=== PATIENT | female | born 1950 | race Caucasian/White ===

== ENCOUNTER 2018-09-27 09:41 | Inpatient (IN) ==
--- NOTE | 2018-09-27 11:12 | EKG Report ---
Test Performed on : 09/27/2018 11:03:09 AM Test Reason : chest pain Blood Pressure : / mmHG Vent. Rate : 099 BPM Atrial Rate : 099 BPM P-R Int : 134 ms QRS Dur : 132 ms QT Int : 384 ms P-R-T Axes : 068 059 056 degrees QTc Int : 492 ms Normal sinus rhythm. Right bundle branch block Abnormal ECG When compared with ECG of 07-NOV-2016 06:24, Right bundle branch block is now present Confirmed by Darren CEVALLOS, Cristian Iverson ([id number]) on 09/28/2018 6:49:43 AM
[2018-09-27 12:09] LABS: ALLEN TEST NO; BLOOD TYPE ARTERIAL; HCO3-(ACT) 26.4 mmoll (20.0-26.0); METHB 0.7 % (0.0-1.5); MODALITY ROOM AIR; O2(CT) 19.4 mL/dL (15.0-23.0); PCO2(98.6) 40 mmHg (35-45); PO2(98.6) 79 mmHg (60-100); SAMPLE BLOOD; SAO2 96.6 % (95.0-100.0); THB 14.8 g/dL (11.5-17.4); pH(98.6) 7.43 (7.35-7.45)
[2018-09-27] MEDS: DILAUDID IV PRN ×3 (12:11→18:11)
[2018-09-27 13:42] LABS: BASO# 0.03 X1000 (0.0-0.2); BASO% 0.3 % (0.0-0.8); EOS# 0.24 X1000 (0.0-0.7); EOS% 2.3 % (0.0-10.0); HEMATOCRIT 43.7 % (37.0-47.0); HEMOGLOBIN 14.3 g/dL (12.0-16.0); IMM GRAN# 0.11 X1000 (0.0-0.04); IMM GRAN% 1.1 % (0.0-0.5); LYMPH# 1.51 X1000 (1.2-3.4); LYMPH% 14.5 % (20.5-51.1); MCH 28.5 PG (27-31); MCHC 32.7 g/dL (33-37); MCV 87.1 FL (81-99); MONO# 0.84 X1000 (0.11-0.59); MONO% 8.1 % (1.7-9.3); MPV 9.8 FL (7.4-10.4); NEUT# 7.65 X1000 (1.4-6.5); NEUT% 73.7 % (42.2-75.2); PLT 264 X1000 (130-400); RBC 5.02 XMIL (4.2-5.4); RDW 14.2 % (11.5-14.5); WBC 10.38 X1000 (4.8-10.8)
[2018-09-27 14:14] LABS: AGAP 10; ALB/GLOB RATIO 1.6; ALBUMIN 3.7 g/dL (3.5-5.0); ALKALINE PHOSPHATASE 96 U/L (32-104); BUN 17 mg/dL (8-22); CALCIUM 9.1 mg/dL (8.8-10.2); CHLORIDE 101 mmol/L (98-107); COSMO 279; CREATININE 0.6 mg/dL (0.5-0.9); ESTIMATED GFR > 60; GLUCOSE 96 mg/dL (70-104); GOT 21 U/L (10-30); GPT 14 U/L (10-36); POTASSIUM 3.6 mmol/L (3.5-5.1); SODIUM 139 mmol/L (136-145); TCO2 28 mmol/L (25-35); TOTAL BILIRUBIN 0.36 mg/dL (0.20-1.00)
[2018-09-27 14:57] LABS: INR 2.73; PROTIME 30.8 Seconds (11.0-16.0)
--- NOTE | 2018-09-27 15:12 | Diag Imaging Result Doc PS360 ---
EXAM: MRI LOW EXT JT W/WO CON-LEFT 09/27/2018 HISTORY: Left Hip pain TECHNIQUE: Axial proton density fat sat and axial oblique, T2 sagittal, coronal STIR, axial T1 fat sat post gadolinium and pregadolinium. COMMENT: There is a lesion in the posterior acetabulum demonstrate decreased T1 weighted signal intensity, increased proton density and STIR signal intensity and enhancement with gadolinium. There is an irregularly marginated collins of increased signal intensity on T2 and contrast enhancement around a more well-circumscribed central nidus demonstrating these signal characteristics to a lesser extent. There is a lesion in the greater trochanter demonstrating decreased contrast enhancement and T2 weighted signal intensity on the fat sat images probably representing fat. There is some associated soft tissue hyperintensity on the proton density T2 and post gadolinium-enhanced images around the bone lesion particularly posteriorly and there does appear to be some breakthrough of the cortex on both the medial and posterior aspects. This is highly suggestive of an aggressive metastatic lesion. There are no previous MRI studies. Compared to the previous CT of 06/29/2017 there is no evidence that the lesion was previously present. IMPRESSION: Metastatic lesion left ischium. Electronically signed by Owen Newby 09/27/2018 3:10 PM
--- NOTE | 2018-09-27 15:20 | Diag Imaging Result Doc PS360 ---
CT THORAX W/CONTRAST - 09/27/2018 INDICATION: pneumonia COMPARISON: Chest x-ray from 11/06/2016 FINDINGS: There is a rather large heterogeneously enhancing left hilar mass. This measures about 4.6 x 6.9 cm in AP and lateral dimensions. There is significant subcarinal, pretracheal, and AP window lymphadenopathy there is some faint infiltrate in the lingula adjacent to the left hilar mass. There is a granuloma in the left lower lobe. There is a tiny there are a few small scattered subcentimeter nodules throughout the right lung. There is mild to moderate COPD. Upper abdominal images are unremarkable. Bony structures are intact. No suspicious bony lesions. IMPRESSION: 1. Suspicious lymphadenopathy in the left hilum and mediastinum. Several tiny scattered pulmonary nodules. Concerning for metastatic cancer. Possibly representing lung cancer. 2. COPD. This exam was performed using automated exposure control, adjustment of mA or kV according to patient size, and/or use of iterative reconstruction technique Electronically signed by Lane Sen 09/27/2018 3:17 PM
[2018-09-27] MEDS: PATIENT'S OWN MED PO SCH (16:20)
[2018-09-27] MEDS: ZANAFLEX PO SCH (16:20)
[2018-09-27 20:14] LABS: URINE SOURCE CLEAN CATCH
[2018-09-27 20:22] LABS: BILIRUBIN URINE NEGATIVE (NEGATIVE); BLOOD URINE MODERATE (NEGATIVE); COLOR YELLOW; GLUCOSE URINE NEGATIVE (NEGATIVE); KETONE URINE NEGATIVE (NEGATIVE); LEUKOCYTES URINE TRACE (NEGATIVE); NITRITE URINE NEGATIVE (NEGATIVE); PH URINE 6.5; PROTEIN URINE TRACE mg/dL (NEGATIVE); SP GRAVITY URINE > 1.050; TURBIDITY URINE CLEAR (CLEAR); UR EPITHELIAL CELLS <10 /HPF (<10); URINE BACTERIA 4+ /HPF; URINE RBC <10 /HPF (<10); URINE WBC <10 /HPF (<10); UROBILINOGEN URINE NORMAL (NORMAL)
[2018-09-27] MEDS: COREG PO SCH (23:57)
--- NOTE | 2018-09-28 03:52 | HISTORY AND PHYSICAL ---
SUBJECTIVE: Left hip pain since 08/08/2018. HISTORY OF PRESENT ILLNESS: She is a 67-year-old white female, initially seen for left hip pain. X-rays were negative. She has history of PAD in both legs, with bypass graft on the left side. I did not hear until yesterday. Basically, came in with cough and left interscapular pain. Chest x- ray showed a left hilar mass. The patient refused to go to the hospital. The patient not able to ambulate. Basically, admitted to the hospital today at the request of the , for further diagnosis. CT chest showed centralized mass, close to the hilum. Unfortunately, MRI of the left hip showed metastatic disease in the left ischium. Consulted with Dr. Angela for a tissue diagnosis. As a result, a hospital admission was warranted for pain control. PAST MEDICAL HISTORY: CAD with a stent, COPD, hyperlipidemia, hypertension, hypothyroidism, nicotine dependency, peripheral vascular disease. PAST SURGICAL HISTORY: Tonsillectomy, appendectomy, hysterectomy, cystocele repair. Initial stent in the left leg in 2010, status post left femoral-tibial bypass in [facility], status post femoral- popliteal bypass in 09/[address] Nation. MEDICINES: Aspirin, amlodipine 5 mg daily, Lipitor 80 daily, Coreg 6.25 p.o. b.i.d., Norvasc 5 daily, Synthroid 50 mcg daily, Ventolin as needed. ALLERGIES: Not known. SOCIAL HISTORY: , 2 children. Retired from [employer]. Smoking 1 pack a day. Occasional alcohol use. FAMILY HISTORY: Father of alcohol abuse problem. Mom of cardiac arrest at the age of 27. Details are not known. HEALTH MAINTENANCE: Flu vaccine in 2018. Pneumococcal July 2017. Mammography November 2017. DEXA scan October 2016. REVIEW OF SYSTEMS: HEENT: No headache. No vision problem. No earache. No sore throat. Neck: No goiter. No lymphadenopathy. No bruit. Cardiopulmonary: Coughing. Interscapular pain. GI: No nausea, vomiting, abdominal pain. Left hip pain, intractable. Not able to ambulate. Claudication symptoms. No weakness. No back pain. Neurologic: No focal symptoms or weakness. PHYSICAL EXAMINATION: VITAL SIGNS: Temperature is 97 degrees, pulse is 76, blood pressure is 126/72, 5 feet 4. HEENT: Atraumatic, normocephalic. Pupils equal, react to light. TMs are normal. Nose and throat within normal limits. NECK: Supple. No lymphadenopathy. No goiter. CHEST: Bilateral air entry. Wheezing. HEART: Sounds are regular. ABDOMEN: Belly is soft, nontender. Good bowel sounds. EXTREMITIES: Pulses decreased in the right foot. NEUROLOGIC: No obvious neurological deficits noted. INVESTIGATIONS: CBC: White cell count 10, hematocrit 43, platelets 264,000. PT 13, INR 2.7. ABG: pH is 7.43, pCO2 40, PO2 79, on room air. SMA-7 is normal. LFTs were normal. CEA level 43. Urinalysis positive for blood. Chest x-ray: Left hilar mass. ASSESSMENT AND PLAN: 1. A 67-year-old white female admitted to the hospital with left hip pain, associated with a eft hilar mass, on Coumadin for peripheral arterial disease. Basically, suspicious for lung malignancy, metastatic, and elevated CEA. Need a tissue diagnosis. Dr. Angela consult for biopsy. 2. Pain control with Dilaudid. 3. Peripheral arterial disease, status post bypass graft in the left side. MILAN on the right is 0.5, occluded SFA and popliteal, with a poor downstream. Currently, asymptomatic. 4. Coronary artery disease, with a stent, on aspirin. 5. Hypothyroidism, on Synthroid. 6. Hyperlipidemia, on Lipitor. 7. Hypertension, on Coreg and Norvasc. 8. Tobacco abuse. Quit smoking. Patient has been abstained from smoking since 2017. 9. Health maintenance: Up-to-date on flu shot and pneumococcal vaccine. 10. Discussed with Dr. Angela and findings with the patient. Follow up. cc: David Natarajan MD
[2018-09-28] MEDS: DILAUDID IV PRN ×4 (07:08→20:26)
[2018-09-28] MEDS ORDERED: VITAMIN K IV ONE ×2 (08:50→10:00)
[2018-09-28] MEDS ORDERED: MOBIC PO SCH (09:00)
[2018-09-28] MEDS ORDERED: ASPIRIN EC PO SCH (09:00)
[2018-09-28] MEDS ORDERED: NS IV ONE (10:00)
[2018-09-28 10:12] LABS: PROTIME 24.2 Seconds (11.0-16.0)
[2018-09-28 10:13] LABS: PTT 37.6 Seconds (22.3-41.8)
[2018-09-28] MEDS: ZANAFLEX PO SCH ×3 (10:21→20:19)
[2018-09-28] MEDS: SYNTHROID PO SCH (10:21)
[2018-09-28] MEDS: APRESOLINE PO SCH (10:21)
[2018-09-28] MEDS: LIPITOR PO SCH (10:22)
[2018-09-28] MEDS: NORVASC PO SCH (10:22)
[2018-09-28] MEDS: COREG PO SCH ×2 (10:22→20:19)
[2018-09-28] MEDS: PATIENT'S OWN MED PO SCH ×3 (10:25→16:01)
--- NOTE | 2018-09-28 16:02 | Diag Imaging Result Doc PS360 ---
EXAM: MRI BRAIN W/WO CONTRAST INDICATION: CVA COMPARISON: None. FINDINGS: There is no evidence of acute infarct. There is focal encephalomalacia involving the right parietal lobe. There is patchy T2/FLAIR hyperintensity in the periventricular and subcortical white matter suggesting mild microangiopathy. There is no discrete intracranial mass, mass effect, or intracranial hemorrhage. There is no evidence of abnormal intracranial enhancement. In the diploic space of the right parietal bone, there is an enhancing nodule measuring 1.2 x 1.1 cm axially. It can be seen on image 262 of series 11. It is nonspecific. Given the patient's known lung mass, a solitary metastatic lesion to the skull cannot be excluded. Surrounding soft tissues and bony structures are essentially unremarkable, otherwise. IMPRESSION: 1.Enhancing nodule involving the right parietal bone that is nonspecific. Although questionable, a metastatic lesion to the skull cannot completely be excluded given the patient's history. 2.No evidence of intracranial metastatic disease. 3.Right parietal encephalomalacia and suggestion of mild white matter microangiopathy. No evidence of acute intracranial pathology. Electronically signed by Neel Hay 09/28/2018 3:59 PM
--- NOTE | 2018-09-28 17:14 | Diag Imaging Result Doc PS360 ---
EXAM: BONE SCAN, TOTAL BODY - 09/27/2018 HISTORY: mets TECHNIQUE: Radionuclide bone scan. Exam performed using 26.2 mCi technetium 99m MDP administered intravenously. Images are obtained of the skeleton anterior-posterior projections, an over the skull and lateral projections. COMPARISON: 09/28/2018 MRI brain FINDINGS: There is an oval area of increased activity at the left anterior superior skull. This appears to correspond with the lesion which is faintly visible on the MRI is suspicious for metastasis. There is mild increased activity at the more posterior superior skull which may represent a second metastasis. There is increased activity at the mid thoracic spine. There is increased activity at the left ischium, compatible with metastasis which was seen on the 09/27/2018 MRI left hip and pelvis. There is faint increased activity at the proximal to mid shaft of the right femur. There is increased activity at the medial right knee/proximal tibia. This location is more suggestive of degenerative disease than metastasis. There is mild increased activity of the cervical spine which may relate to degenerative disease. IMPRESSION: Apparent metastases at skull and left ischium. Possible metastasis at mid thoracic spine. Questionable metastasis at proximal to midshaft of right femur. Increased activity at right knee which may relate to degenerative disease. Mild increased activity of cervical spine which may relate to degenerative disease. Electronically signed by John Weston 09/28/2018 5:11 PM
--- NOTE | 2018-09-28 20:47 | PROGRESS NOTE ---
DATE: 09/28/2018 SUBJECTIVE: The patient's pain is much better on the left hip with hydromorphone. Appreciated Dr. Angela's consult. Workup is in progress. REVIEW OF SYSTEMS: Slight headache. PHYSICAL EXAMINATION: Vital Signs: Temperature is 97. Vitals are stable. HEENT: Within normal limits. Neck: Supple. Chest: Bilateral air entry. Cardiovascular: Heart sounds are regular. Abdomen: Belly is soft, nontender. Neurologic: No obvious neurological deficits. INVESTIGATIONS: CBC is normal. PT 24, INR 2.0. PO2 79. SMA-7 is normal. CEA level is high. ASSESSMENT AND PLAN: 1. Lung mass suspicious for metastatic disease, based on the MRI of the left hip, which has been going on since 08/08/2018. 2. Headaches. Will get MRI of the brain. 3. Bone scan for metastatic disease. 4. Waiting for tissue diagnosis. 5. Pain control with hydromorphone on the left hip, and based on the tissue, needs further evaluation, and also a consult with the oncologist. - LEVEL OF DOCUMENTATION: 35 minutes. cc: David Natarajan MD
--- NOTE | 2018-09-29 01:52 | CONSULTATION ---
DATE OF CONSULTATION: 09/28/2018 REQUESTING PROVIDER: Dr. David Natarajan. REASON FOR CONSULTATION: Lung mass. HISTORY OF PRESENT ILLNESS: This is a 67-year-old female with a medical history of coronary artery disease, COPD, hyperlipidemia, hypertension, hypothyroidism, tobacco abuse, and peripheral vascular disease. She was directly admitted Dr. Natarajan's office with a left hilar mass shown on chest x-ray. CT chest with contrast showed a rather large heterogenously enhancing left hilar lung mass, measuring about 4.6 x 6.9 cm in AP and lateral dimensions, with suspicious lymphadenopathy in the left hilum and mediastinum. Several tiny scattered pulmonary nodules concerning for metastatic cancer, possibly representing lung cancer. MRI of the left hip showed metastatic disease in the left ischium. At the time of my exam, she reports left hip pain. She states she feels like she has chest cold for a couple days. She denies hemoptysis, fever, chill, weight change, nausea, chest pain, or palpitation. PAST MEDICAL HISTORY: 1. Coronary artery disease, with 2 stents. 2. COPD. 3. Hyperlipidemia. 4. Hypertension. 5. Hypothyroidism. 6. Tobacco abuse, about 11-[id number] smoking history. 7. Peripheral vascular disease with two bypasses on LLE, on chronic Coumadin at home. PAST SURGICAL HISTORY: 1. Tonsillectomy. 2. Appendectomy. 3. Hysterectomy. 4. Cystocele repair. 5. Initial stent in the left leg in 2010. 6. Left femorotibial bypass. 7. Left femoropopliteal bypass. SOCIAL HISTORY: The patient smokes 1 pack per day for 50 years. She drinks occasionally. She has no history of illicit drug use. FAMILY HISTORY: Father had COPD. Mother of a cardiopulmonary arrest when she was sleeping at the age of 27. ALLERGIES: No known drug allergies. REVIEW OF SYSTEMS: A 10-point review of systems was conducted, and pertinent is listed in the HPI, otherwise noncontributory. PHYSICAL EXAMINATION: Vital Signs: Temperature 98.1, blood pressure 123/76, pulse 75, respiratory rate 16, oxygen saturation 93% in room air. General: This is a very pleasant female. She is sitting on the bed, with no acute distress noted. The patient's is at the bedside, and is very supportive. HEENT: Atraumatic. Trachea midline. Mucosa pink and moist. Respiratory: Lung expansion equal bilaterally. Clear to auscultation. Cardiovascular: Regular rate and rhythm, without murmur noted. Gastrointestinal: Bowel sounds normoactive in all 4 quadrants. Soft, nontender, and nondistended. Extremities : No pedal edema. No cyanosis. No clubbing. Neurologic: Alert and oriented x3. Speech fluent. Follows commands. ASSESSMENT: This is a 67-year-old female, admitted directly from Dr. Natarajan's office, for a left hilar mass on her chest x-ray. She has a medical history of coronary artery disease, chronic obstructive pulmonary disease, hyperlipidemia, hypertension, hypothyroidism, tobacco abuse, and peripheral vascular disease. 1. lung mass with suspicious lymphadenopathy and several tiny scattered pulmonary nodules, suspicious for metastatic disease. 2. Chronic obstructive pulmonary disease. 3. Ongoing tobacco abuse PLAN: 1. Continue holding Coumadin and continue vitamin K; FU with coagulation panels. 2. Bronchoscopy with biopsy planned on next Monday 3. Dr. Angela discussed our plan with the patient and her in detail. All questions answered. 4. Daily education on the need to quit smoking and the means of smoking cessation. 5. Continue GI and DVT prophylaxis. Thank you for the courtesy of this consult. Dictated by FABRIZIO Pacheco for Jaspreet Angela MD cc: FABRIZIO Pacheco MD Jagan Reddy, MD [facility]
[2018-09-29] MEDS: DILAUDID IV PRN ×4 (02:40→20:30)
[2018-09-29] MEDS ORDERED: VITAMIN K 5 MG in NS 50 ML IV ONE (07:13)
[2018-09-29 08:33] LABS: PTT 27.9 Seconds (22.3-41.8)
[2018-09-29 08:50] LABS: INR 1.06; PROTIME 14.7 Seconds (11.0-16.0)
[2018-09-29] MEDS: PATIENT'S OWN MED PO SCH ×3 (09:03→16:17)
[2018-09-29] MEDS: SYNTHROID PO SCH (09:03)
[2018-09-29] MEDS: ZANAFLEX PO SCH ×3 (09:03→16:17)
[2018-09-29] MEDS: COREG PO SCH ×2 (09:03→20:29)
[2018-09-29] MEDS: LIPITOR PO SCH (09:03)
[2018-09-29] MEDS: NORVASC PO SCH (09:03)
[2018-09-29] MEDS: APRESOLINE PO SCH (09:03)
[2018-09-29] MEDS: LEVAQUIN 500 MG/D5W 500 MG/100 ML IVPB IV SCH (09:08)
[2018-09-29] MEDS: ATIVAN IV PRN ×2 (13:04→22:59)
--- NOTE | 2018-09-29 13:53 | PROGRESS NOTE ---
DATE: 09/29/2018 SUBJECTIVE: The patient has a little better pain, but urine cultures were with some infection. Patient is distraught about the findings on MRI and bone scan. Waiting for tissue diagnosis. OBJECTIVE: Vital Signs: Temperature is 98 degrees. Vitals are stable. HEENT: Exam is within normal limits. Neck: Supple. Chest: Clear. Heart: Sounds are regular. No deficits noted. MRI findings discussed, as well as bone scan. PT was 14, INR 1.06, CEA level 3.4. Urine culture showed E coli. ASSESSMENT AND PLAN: 1. Urinary tract infection. Intravenous Levaquin 500 daily. 2. Anxiety/depression due to recent diagnosis. Ativan 0.5 mg every 6 hours. 3. Left hip pain on intravenous Dilaudid. 4. Peripheral artery disease in both legs, stable off Coumadin. The patient was given vitamin K. INR is within normal limits. Waiting for bronchoscopy on Monday for tissue diagnosis. We will also initiate Oncology consultation prior to the discharge. LEVEL OF DOCUMENTATION: 25 minutes. cc: David Natarajan MD
[2018-09-29] MEDS: SOLU-MEDROL IV SCH ×2 (15:16→20:29)
[2018-09-30] MEDS: SOLU-MEDROL IV SCH ×4 (00:48→20:49)
[2018-09-30] MEDS: DILAUDID IV PRN ×4 (02:05→23:57)
[2018-09-30] MEDS: ATIVAN IV PRN ×2 (04:59→17:03)
[2018-09-30] MEDS: APRESOLINE PO SCH (08:08)
[2018-09-30] MEDS: COREG PO SCH ×2 (08:08→20:49)
[2018-09-30] MEDS: ZANAFLEX PO SCH ×3 (08:08→16:59)
[2018-09-30] MEDS: SYNTHROID PO SCH (08:08)
[2018-09-30] MEDS: LEVAQUIN 500 MG/D5W 500 MG/100 ML IVPB IV SCH (08:08)
[2018-09-30] MEDS: LIPITOR PO SCH (08:08)
[2018-09-30] MEDS: PATIENT'S OWN MED PO SCH ×3 (08:09→16:19)
[2018-09-30] MEDS: NORVASC PO SCH (08:10)
[2018-09-30 10:08] LABS: INR 0.89; PROTIME 12.8 Seconds (11.0-16.0)
[2018-09-30 10:09] LABS: PTT 24.1 Seconds (22.3-41.8)
--- NOTE | 2018-09-30 16:09 | PROGRESS NOTE ---
DATE: 09/30/2018 SUBJECTIVE: Family was bedside. Findings were alarming, suspicious for malignancy, but tissue diagnosis is important. Do not disclose the diagnosis until the tissue diagnosis. INR is normal. Waiting for bronchoscopy in the morning. Pain is adequately better. EXAMINATION: Vital signs: Temperature is 97 degrees, pulse is 89, blood pressure 123/73. HEENT: Exam within normal limits. Neck: Supple. Chest: Bilateral air entry. Heart : Sounds are regular. Abdomen: Belly is soft, nontender. INVESTIGATIONS: PT 12, INR 0.8. ASSESSMENT AND PLAN: 1. Lung malignancy with metastatic disease and tissue diagnosis tomorrow. 2. Also we will involve the oncologist . 3. Urinary tract infection. On IV antibiotics. 4. Pain control, left hip pain, with IV Dilaudid. 5. Anxiety. Now Ativan as needed 6. Also started on IV steroids for the pain control. 7. Peripheral artery disease (PAD) both legs. Stable. We will follow up. LEVEL OF DOCUMENTATION: 25 minutes. cc: David Natarajan MD MTDD
[2018-10-01] MEDS: SOLU-MEDROL IV SCH ×3 (00:42→15:14)
[2018-10-01] MEDS: DILAUDID IV PRN ×4 (03:42→21:49)
[2018-10-01 07:38] LABS: BASO# 0.01 X1000 (0.0-0.2); BASO% 0.1 % (0.0-0.8); HEMOGLOBIN 14.3 g/dL (12.0-16.0); IMM GRAN% 0.5 % (0.0-0.5); LYMPH# 0.86 X1000 (1.2-3.4); LYMPH% 4.5 % (20.5-51.1); MCH 28.3 PG (27-31); MCHC 33.3 g/dL (33-37); MONO# 0.42 X1000 (0.11-0.59); MONO% 2.2 % (1.7-9.3); MPV 10.3 FL (7.4-10.4); NEUT# 17.85 X1000 (1.4-6.5); NEUT% 92.7 % (42.2-75.2); PLT 300 X1000 (130-400); RBC 5.06 XMIL (4.2-5.4); RDW 13.6 % (11.5-14.5); WBC 19.24 X1000 (4.8-10.8)
[2018-10-01 07:53] LABS: LYMPHS 2 % (21-51); MONO 2 % (1-9); SEGS 96 % (42-75)
[2018-10-01] MEDS: APRESOLINE PO SCH (08:19)
[2018-10-01] MEDS: COREG PO SCH ×2 (08:20→21:07)
[2018-10-01] MEDS: ZANAFLEX PO SCH ×5 (08:20→17:31)
[2018-10-01] MEDS: PATIENT'S OWN MED PO SCH ×3 (08:21→17:30)
[2018-10-01] MEDS: LEVAQUIN 500 MG/D5W 500 MG/100 ML IVPB IV SCH (08:27)
[2018-10-01] MEDS ORDERED: ALBUTEROL NEB INH PRN (08:46)
[2018-10-01] MEDS: LIPITOR PO SCH (09:16)
[2018-10-01] MEDS: SYNTHROID PO SCH (09:19)
[2018-10-01] MEDS: NORVASC PO SCH (09:19)
[2018-10-01] MEDS: ATIVAN IV PRN (09:21)
[2018-10-01] MEDS ORDERED: EPINEPHRINE ONE (12:28)
[2018-10-01] MEDS ORDERED: XYLOCAINE 2% ONE ×2 (12:28→13:00)
[2018-10-01] MEDS ORDERED: SODIUM CHLORIDE 0.9% 20 ML ONE (12:28)
[2018-10-01] MEDS ORDERED: XYLOCAINE 2% VISCOUS ONE (12:28)
[2018-10-01] MEDS ORDERED: XYLOCAINE-MPF 2% ONE (12:36)
[2018-10-01] MEDS ORDERED: DIPRIVAN 1% ONE (12:36)
[2018-10-01] MEDS ORDERED: VERSED ONE (12:52)
--- NOTE | 2018-10-01 14:24 | OPERATIVE NOTE ---
PROCEDURE DATE: REFERRING PHYSICIAN: Dr. Natarajan. PROCEDURE: Bronchoscopy. INDICATIONS: Left lung mass. DESCRIPTION OF PROCEDURE: Consent obtained. Conscious sedation administered by Anesthesia Department. Local anesthesia with lidocaine jelly and spray. Flexible scope passed through left nostril, normal vocal cord movements. All major segments visualized, and we seen a blocking tumor in the left upper lobe lingular segment. Fluoroscopy scanning was used for sampling. We did some washings and brushings, and eventually endobronchial x3 and transbronchial times 3 biopsies to prevent significant bleeding. We did dilute epinephrine spray to the area. Total blood loss was less than 10 mL, and by the time we finished and we pulled the scope. There was no active bleeding. Fluoroscopy scanning pulse showed no pneumothorax, however an official chest x-ray is requested IMPRESSION: 1. Lung mass. 2. Left upper lobe blocking tumor to the lingular segment, and protruding into the left upper lobe major segments. The block is about 100%. PLAN: Awaiting pathology and pathology reports. cc: MD David Martin MD
--- NOTE | 2018-10-01 14:25 | Diag Imaging Result Doc PS360 ---
CHEST-PORTABLE - 10/01/2018 INDICATION: POST BRONCH COMPARISON: 11/06/2016 FINDINGS: There is a large rounded opacity in the left perihilar lung. This measures 5.3 cm. There is some faint infiltrate in the left lung base as well. No pneumothorax or significant pleural effusion. Heart size is top normal. IMPRESSION: No pneumothorax or pleural effusion. Electronically signed by aLne Sen 10/01/2018 2:22 PM
--- NOTE | 2018-10-01 19:20 | PROGRESS NOTE ---
DATE: 10/01/2018 SUBJECT: The patient is anxious to go home and appreciated Dr. Angela consult and waiting for bronchoscopy. EXAM: Vital signs: Temperature 97 degrees, pulse is 57, blood pressure is 173/50. HEENT: Within normal limits. Neck: Supple. Chest: Clear. Heart: Sounds are regular. Belly: Is soft, nontender. LABS: White cell count 19, hematocrit 43, platelets 300,000. INR is 0.89. ASSESSMENT AND PLAN: 1. Metastatic suspicious lung cancer. Waiting for tissue diagnosis, also oncology consult Dr. Feldman, waiting for bronchoscopy. 2. Urinary tract infection on intravenous antibiotics and will restart of the Coumadin tomorrow and decrease IV steroids and will discuss with Dr. Feldman. LEVEL OF DOCUMENTATION: 25 minutes. cc: David Natarajan MD
[2018-10-02] MEDS: DILAUDID IV PRN ×2 (06:45→09:36)
[2018-10-02] MEDS ORDERED: SOLU-MEDROL IV SCH (09:00)
[2018-10-02] MEDS: LEVAQUIN 500 MG/D5W 500 MG/100 ML IVPB IV SCH (09:22)
[2018-10-02] MEDS: NORVASC PO SCH (09:23)
[2018-10-02] MEDS: LIPITOR PO SCH (09:23)
[2018-10-02] MEDS: SYNTHROID PO SCH (09:23)
[2018-10-02] MEDS: COREG PO SCH (09:23)
[2018-10-02] MEDS: ZANAFLEX PO SCH ×3 (09:23→17:55)
[2018-10-02] MEDS: APRESOLINE PO SCH (09:23)
[2018-10-02] MEDS: PATIENT'S OWN MED PO SCH ×3 (09:24→16:39)
--- NOTE | 2018-10-02 12:03 | Diag Imaging Result Doc PS360 ---
CT ABD/PELVIS W/PO AND IV CON - 10/02/2018 INDICATION: R/O mets COMPARISON: None FINDINGS: The lung bases are clear and the heart size is normal. The liver, gallbladder, spleen, pancreas, adrenals, and kidneys are normal. There is a small benign left renal cyst. No bowel obstruction or inflammation. There are large erosive bony metastases in the pelvis. There is one in the anterior left iliac wing that measures 3 cm in diameter. This completely erodes the bone through and through. There is also a large metastasis at the posterior medial wall of the left acetabulum. Again this erodes through and through. This also measures about 3 cm. IMPRESSION: Large erosive bony metastases in the left side of the pelvis. This exam was performed using automated exposure control, adjustment of mA or kV according to patient size, and/or use of iterative reconstruction technique Electronically signed by Lane Sen 10/02/2018 12:00 PM
[2018-10-02 13:57] VITALS: BP 107/59
[2018-10-02] MEDS: NORCO-5 PO PRN ×2 (14:41→19:40)
--- NOTE | 2018-10-02 17:43 | HEMO/ONC CONSULTATION ---
DATE: 10/01/2018 ADMITTING PHYSICIAN: Dr. Natarajan. REQUESTING PHYSICIAN: Dr. Natarajan. CHIEF COMPLAINT: Probable lung cancer. HISTORY OF PRESENT ILLNESS: Ms. Isabella Sheets is a pleasant, 67-year-old female with a medical history of coronary artery disease, COPD, hyperlipidemia, hypertension, hypothyroidism, nicotine dependency, peripheral vascular disease, who was initially seen for left hip pain. X-rays at that time were negative. The patient presented to [facility] secondary to significant cough and left interscapular pain. Chest x-ray showed a left hilar mass. The patient was admitted to the hospital where CT of the chest showed a centralized mass close to the hilum. Additionally, MRI of the left hip showed metastatic disease to the left ischium. Dr. Angela has been consulted for bronchoscopy with tissue diagnosis. We are consulted for workup and treatment plan. PAST SURGERY HISTORY: As in HPI. PAST SURGICAL HISTORY: 1. Tonsillectomy. 2. Appendectomy. 3. Hysterectomy. 4. Cystocele repair. 5. Stent placement in left leg. 6. Left femoral/tibial bypass, femoral/popliteal bypass. MEDICATIONS ON ADMISSION: 1. Aspirin. 2. Amlodipine. 3. Lipitor. 4. Coreg. 5. Norvasc. 6. Synthroid. 7. Ventolin. ALLERGIES: The patient has no known drug allergies. SOCIAL HISTORY: The patient smokes 1 pack cigarettes daily. She does not use alcohol or illicit drugs. FAMILY HISTORY: Negative for any hematologic or oncologic problem. REVIEW OF SYSTEMS: A 14 point review of systems was obtained and is negative except for mentioned in HPI. PHYSICAL EXAMINATION: General: Ms. Sheets is a 67-year-old female, lying supine in bed, in no immediate distress. Vital Signs: Temperature 98.1, blood pressure 124/76, heart rate 74, respirations 14, O2 saturation is 96% on room air. HEENT: Normocephalic, atraumatic. Mucous membranes are pink and moist. Sclerae anicteric. Extraocular movements intact. Neck: Supple. Lungs: Coarse breath sounds throughout. CV: S1, S2 is heard. No murmurs, rubs, or gallops. Abdomen: Soft, nontender, nondistended. Bowel sounds positive in all quadrants. No rebound or guarding noted. Extremities: No clubbing, cyanosis, or edema. Dermatologic: No rashes, bruises, or lesions. Neurologic: The patient is awake, alert, and oriented x3. She has no focal deficits. LABORATORY DATA: Hemoglobin 14.3, hematocrit 43.0, white blood cell count is 19.24, platelets 300,000. INR is 0.89. IMAGING STUDIES: MRI of the brain reveals right parietal bone nodule with no intracranial metastases, as well as right parietal encephalomalacia; no acute findings. CT chest reveals suspicious lymphadenopathy in the left hilum and mediastinum with tiny scattered lung nodules questionably related to lung cancer, as well as COPD. Bone scan reveals skull and left ischium metastases with mid-thoracic spine and right femur metastases. ASSESSMENT AND PLAN: 1. Probable lung cancer. Dr. Angela has been consulted at this time for tissue diagnosis with bronchoscopy. We will check a CT of the abdomen and pelvis as well to rule out any further metastases. Treatment plan will follow. 2. Peripheral arterial disease. On Coumadin, which is being held. The patient is status post left graft. 3. Coronary artery disease. On aspirin status post stent. 4. Hypothyroidism. On thyroid replacement. 5. Hypertension. On Coreg and Norvasc. 6. Hyperlipidemia. The patient is being maintained on Lipitor. We will follow along with you and make further recommendations pending outcomes. The above reflects the history, exam, assessment, and plan of Dr. Howard. Dictated by FABRIZIO Mora for Torey Howard MD cc: FABRIZIO Mora MD Jagan Reddy, MD
--- NOTE | 2018-10-04 22:52 | DISCHARGE SUMMARY ---
ADMISSION DATE: 09/27/2018 DISCHARGE DATE: 10/02/2018 DISCHARGING DIAGNOSIS: Intractable left hip pain due to metastatic nonsmall cell lung cancer, as per Dr. Fernando. Final report is pending. SECONDARY DIAGNOSES: 1. Coronary artery disease with a stent. 2. Chronic obstructive pulmonary disease. 3. Hyperlipidemia. 4. Hypertension. 5. Hypothyroidism. 6. Nicotine dependency. 7. Peripheral vascular disease both legs status post bypass graft in the left leg, and also moderate peripheral arterial disease in the right leg with a distal superficial femoral artery occlusion with poor runoff downstream. 8. Metastatic disease in the brain, right parietal area. CONSULTS: 1. Dr. Angela. 2. Dr. Howard. PROCEDURES: Bronchoscopy with bronchial tumor on the left lung, nonsmall cell lung cancer. Further studies are pending. BRIEF HISTORY AND HOSPITAL COURSE: Please see the H and P that was done on 09/17/2018. In brief, she is a 67-year-old, white female who was admitted to the hospital with intractable left hip pain since 08/08/2019. Patient was followed 6 weeks later in my office. Subsequent workup, chest x- ray showed left lung mass. Findings are suspicious for metastatic disease. Admitted to the hospital for tissue diagnosis and pain control. The patient was given IV Dilaudid for pain control. Further workup revealed metastatic lung disease with nonsmall cell lung cancer. Bronchoscopy findings are left lung tumor consistent with nonsmall cell lung cancer. Further workup revealed metastases to the brain and bones. PET scan was pending, Dr. Howard was consulted. The patient is anxious to go home. She is going to follow up with Dr. Howard for pain control, staging, and further treatment. Urinary tract infection with E coli. Patient also had E coli in the urine for which she was given IV antibiotics. At the time of discharge, patient completely asymptomatic. LABS: CBC: White cell count 10, hematocrit 43, platelets 264,000. PT 12, INR 0.89. ABG: pH is 7.43, pCO2 of 40, PO2 of 79. SMA-7: Sodium 139, potassium 3.6, BUN 17, creatinine 0.6. Glucose 96. LFTs were normal. CEA level 43.4. Urine cultures were negative. The patient was on Coumadin for PAD disease, that was stopped prior to the bronchoscopy, and also given vitamin K. RADIOLOGY PROCEDURES: 1. CT scan of the abdomen and pelvis: Large erosive bony metastasis in the left side of the pelvis. 2. Chest x-ray showed 5 cm mass in the left perihilar lung. 3. MRI of the brain, enhancing nodule in the right parietal bone suspicious for metastatic disease. 4. Bone scan: Apparently, metastasis skull, left ischium and possible in mid thoracic spine. 5. MRI of the left hip: Metastatic lesion in the left is clean. 6. Chest CT: Suspicious lymphadenopathy in the left hilum and mediastinum, and COPD. The patient appears to be disordered and was given some Ativan. DISCHARGE INSTRUCTIONS: 1. Aspirin 81 mg daily, amlodipine 5 mg daily, Lipitor 80 mg daily, Coreg 6.25 b.i.d. hydralazine 25 daily, Synthroid 50 mcg daily, Mobic 15 daily, tizanidine 4 mg t.i.d., warfarin 5 and 10 alternate, and maintain the Coumadin levels did INR between 2 and 3; [place] 5 q.6 hours p.r.n. pain. 2. She is going to follow up with Dr. Howard for maintenance care. 3. Follow up in my office. cc: David Natarajan MD
== END 2018-10-02 19:47 | disposition home or self-care (01) | DRG 829 ==
LOC: DIRADM 09:41 → 3N 10:25
PROVIDERS: ADMIT Internal Medicine; ATTEND Internal Medicine
CPT/HCPCS: 70553; 71010; 71045; 71260; 73723; 74177; 76000; 78306; 80053; 81001; 82378; 82805; 85025; 85610; 85730; 87015; 87070; 87077; 87088; 87102; 87116; 87147; 87186; 87205; 87206; 88112; 88305; 88341; 88342; 88343; 93005; 93010; A9270; A9503; A9579; G0461; G0462; J0171; J1170; J1956; J2060; J2250; J2920; J3430; Q9967

== ENCOUNTER 2019-02-01 10:34 | Inpatient (IN) ==
[2019-02-01] MEDS ORDERED: DURAGESIC 100 MICROGM/HR PATCH TD ONE (10:55)
[2019-02-01] MEDS ORDERED: KETAMINE IV ONE (10:55)
[2019-02-01] MEDS ORDERED: FENTANYL IV ONE (10:55)
[2019-02-01] MEDS ORDERED: NS 1,000 ML IV ONE (10:57)
--- NOTE | 2019-02-01 11:16 | Diag Imaging Result Doc PS360 ---
CHEST-PORTABLE - 02/01/2019 INDICATION: cp COMPARISON: 10/24/2018 FINDINGS: There is now complete opacification of the left lung. There is probably some volume loss indicating substantial collapse. Stable right chest port in good position. The right lung is clear. IMPRESSION: Complete collapse of the left lung. Electronically signed by Lane Sen 02/01/2019 11:14 AM
[2019-02-01 11:44] LABS: BASO# 0.02 X1000 (0.0-0.2); BASO% 0.2 % (0.0-0.8); HEMATOCRIT 32.7 % (37.0-47.0); HEMOGLOBIN 10.9 g/dL (12.0-16.0); IMM GRAN# 0.06 X1000 (0.0-0.04); IMM GRAN% 0.6 % (0.0-0.5); LYMPH% 3.7 % (20.5-51.1); MCH 29.1 PG (27-31); MCHC 33.3 g/dL (33-37); MCV 87.4 FL (81-99); MONO# 0.67 X1000 (0.11-0.59); MONO% 6.3 % (1.7-9.3); MPV 9.8 FL (7.4-10.4); NEUT# 9.55 X1000 (1.4-6.5); NEUT% 89.2 % (42.2-75.2); PLT 302 X1000 (130-400); RBC 3.74 XMIL (4.2-5.4); RDW 18.6 % (11.5-14.5)
[2019-02-01] MEDS ORDERED: CARDIZEM IV ONE ×2 (11:47→12:21)
[2019-02-01 11:56] LABS: INR 2.78; PROTIME 31.3 Seconds (11.0-16.0)
[2019-02-01 12:10] LABS: AGAP 19; ALB/GLOB RATIO 1.2; ALBUMIN 3.1 g/dL (3.5-5.0); ALKALINE PHOSPHATASE 142 U/L (32-104); BUN 10 mg/dL (8-22); C REACTIVE PROT QUANT 122.39 mg/L (0.00-5.00); CALCIUM 6.8 mg/dL (8.8-10.2); CHLORIDE 91 mmol/L (98-107); COSMO 259; CREATININE 0.5 mg/dL (0.5-0.9); ESTIMATED GFR > 60; GLUCOSE 88 mg/dL (70-104); GOT 26 U/L (10-30); GPT 7 U/L (10-36); POTASSIUM 3.8 mmol/L (3.5-5.1); SODIUM 130 mmol/L (136-145); TCO2 20 mmol/L (25-35); TOTAL PROTEIN 5.7 g/dL (6.3-8.3)
--- NOTE | 2019-02-01 12:13 | EKG Report ---
Test Performed on : 02/01/2019 11:37:19 AM Test Reason : cp Blood Pressure : / mmHG Vent. Rate : 187 BPM Atrial Rate : 182 BPM P-R Int : 000 ms QRS Dur : 122 ms QT Int : 248 ms P-R-T Axes : 000 091 -32 degrees QTc Int : 437 ms Atrial fibrillation. with rapid ventricular response. Right bundle branch block T wave abnormality, consider lateral ischemia Abnormal ECG When compared with ECG of 27-SEP-2018 11:03, Atrial fibrillation. has replaced Sinus rhythm. Vent. rate has increased BY [address] now depressed in Lateral leads T wave inversion now evident in Inferior leads Unconfirmed Result
[2019-02-01] MEDS ORDERED: MAGNESIUM SULFATE 2 GM/S.W.I. 2 GM/50 ML IVPB IV ONE (12:16)
[2019-02-01] MEDS ORDERED: CALCIUM CHLORIDE SYRINGE IV ONE (12:16)
[2019-02-01] MEDS ORDERED: LASIX IV ONE (12:21)
[2019-02-01] MEDS ORDERED: VANCOMYCIN 1 GM/NS 1 GM/250 ML IVPB IV ONE (12:23)
[2019-02-01] MEDS ORDERED: ZOSYN 4.5 GM in NS 100 ML IV ONE (12:23)
--- NOTE | 2019-02-01 12:38 | PROVIDER DOCUMENTATION ---
This chart was entered by Tammi Castillo Scribe, acting as scribe for Manpreet May MD. HPI-General Adult - General Chief Complaint: Back Pain Stated Complaint: low back pain Time Seen by Provider: 02/01/19 10:38 Source: patient, family () Allergies/Adverse Reactions: Patient Allergies Allergy/AdvReac Type Severity Reaction Status Date / Time No Known Allergies Allergy Verified 02/01/19 11:51 Home Medications: Home Medication List Medication Instructions Recorded Confirmed Last Taken Type Amlodipine [Norvasc] 5 mg PO DAILY 09/27/18 10/24/18 10/22/18 History Atorvastatin Calcium 80 mg PO DAILY 09/27/18 10/24/18 10/23/18 10:00 History Levothyroxine [Synthroid] 50 microgm PO DAILY 09/27/18 10/24/18 10/23/18 History Meloxicam 15 mg PO DAILY 09/27/18 10/24/18 10/23/18 10:00 History Tizanidine HCl 4 mg PO TID 09/27/18 10/24/18 10/23/18 History Warfarin [Coumadin] 10 mg PO QHS 09/27/18 10/24/18 10/19/18 History Allopurinol 300 mg PO DAILY 10/23/18 10/24/18 10/23/18 10:00 History Carvedilol 6.25 mg PO BID 10/23/18 10/24/18 10/23/18 10:00 History Cetirizine HCl [Zyrtec] 10 mg PO DAILY 10/23/18 10/24/18 10/23/18 10:00 History Docusate Sodium [Colace] 100 mg PO DAILY 10/23/18 10/24/18 10/23/18 10:00 History Enoxaparin [Lovenox] 80 mg SUBQ Q12H 10/23/18 10/24/18 10/23/18 History Fentanyl 25 Microgm/Hr Patch 1 ea TD Q72H 10/23/18 10/24/18 10/21/18 History [Duragesic 25 Microgm/Hr Patch] Hydroxyzine [Atarax] 25 mg PO DAILY 10/23/18 10/24/18 10/23/18 History Ondansetron [Zofran] 4 mg PO Q6H PRN PRN 10/23/18 10/24/18 10/23/18 History Hydromorphone [Dilaudid] 2 mg PO Q3H PRN PRN 10/24/18 10/24/18 10/24/18 09:49 History - History of Present Illness -Gen Adult Nature of Presenting Problems: Patient is a 68 year old female who presents with generalized pain that started at 0200 this morning. Patient's states patient has bone, lung and liver cancer that is being monitored by Dr. Howard. Patient states she is on a Morphine pump of 12 mg an hour. states pump was adjusted yesterday around 1500 from 10 mg to 12 mg. states patient recently finished chemo and is suppose to start radiation today at 2:30 pm. Patient denies fever, chills and shortness of breath. RN states patient had 4 mg PO of Dilaudid prior to arrival. Location of Pain/Injury: reports: generalized Pain Radiation: reports: no radiation Quality of Pain: reports: aching Severity: reports: moderate Onset/Duration: reports: this morning (0200) Timing: reports: still present, getting worse Associated Symptoms: reports: denies symptoms Similar Symptoms Previously?: No Recently seen or treated by another doctor?: Yes Review of Systems - Adult - REVIEW OF SYSTEMS - ADULT Constitutional: reports: no symptoms reported. denies: chills, fever, fatique Eyes: reports: no symptoms reported Ears, Nose, Mouth & Throat: reports: no symptoms reported Cardiovascular: reports: no symptoms reported Respiratory: reports: cough. denies: shortness of breath, wheezing Gastrointestinal: reports: no symptoms reported Genitourinary: reports: no symptoms reported Musculoskeletal: reports: see HPI, other (generalized pain). denies: joint swelling, muscle weakness Integumentary: reports: no symptoms reported Neurological: reports: no symptoms reported Psychiatric: reports: no symptoms reported Endocrine: reports: no symptoms reported Hematologic/Lymphatic: reports: no symptoms reported Allergic/Immunologic: reports: no symptoms reported All Other Systems: Reviewed and Negative Past History - Adult - PAST MEDICAL HISTORY-ADULT Review of Records: reports: Old Records Reviewed, Nursing Assessment Review, Medications Reviewed, Social history reviewed & non-contributory. Major Childhood Illnesses: reports: denies history Cardiovascular: reports: HTN, VT, other (Femoral artery bypass) Respiratory: reports: cancer Gastrointestinal: reports: denies history Obstetrical/Gynecological: reports: denies history Genitourinary: reports: denies history Musculoskeletal: reports: denies history Neurological: reports: denies history Psychiatric: reports: denies history Endocrine/Immune: reports: thyroid disorder Other Conditions: reports: denies history - PRIOR SURGERIES/PROCEDURES Surgical/Procedure History: reports: appendectomy, hysterectomy, tonsillectomy - IMMUNIZATION STATUS Childhood Immunizations: See Nurse Assessment Flu Vaccine: See Nurse Assessment - FAMILY HISTORY Family History: reviewed, not pertinent - SOCIAL HISTORY Smoking: cigarettes (former) Substance Use: denies Living Situation: family Physical Exam-General - PHYSICAL EXAM-ADULT Initial Vital Signs Reviewed: Yes - CONSTITUTIONAL General Appearance: alert, moderate distress. negative: lethargic, slow to respond - RESPIRATORY Respiratory: chest non-tender, lungs clear, normal breath sounds, other (port to right upper chest). negative: crackles, rhonchi, stridor - CARDIOVASCULAR Cardiovascular: normal peripheral pulses, tachycardia, extra beats. negative: systolic murmur - GASTROINTESTINAL (ABDOMEN) Abdominal Exam: normal bowel sounds, non tender, soft. negative: guarding, rebound - MUSCULOSKELETAL Extremity: other (4 + pitting edema to bilateral lower extremities.). negative: deformity, joint effusion - SKIN Integumentary: normal color, normal turgor, warm/dry. negative: cyanosis, ecchymosis, erythema, jaundice - NEUROLOGIC Neurologic: grossly normal. negative: aphasia, facial droop - PSYCHIATRIC Psych/Mental Status: normal mood/affect, oriented x 3. negative: anxious Progress - PLAN OF CARE/RESULTS Progress/Plan/Lab Results: Vital Signs - 8 hr 02/01/19 10:36 Temperature 98.1 F Pulse Rate 108 H Respiratory Rate 26 H Blood Pressure 121/71 O2 Sat by Pulse Oximetry 94 L Orders Category Date Time Status Access [OK to use Port-A-Cath] ORDERED Care 02/01/19 10:57 Active Nursing- Obtain EKG once Care 02/01/19 10:54 Active CHEST-PORTABLE [RAD] Stat Exams 02/01/19 10:55 Ordered BLOOD CULTURE [BLDCUL] Stat Lab 02/01/19 10:54 Uncollected C REACTIVE PROT QUANT [CHEM] Stat Lab 02/01/19 10:54 Uncollected CBC WITH ELECTRONIC DIFF [HEME] Stat Lab 02/01/19 10:54 Uncollected COMPREHENSIVE METABOLIC PANEL [CHEM] Stat Lab 02/01/19 10:54 Uncollected LACTATE, PLASMA [CHEM] Stat Lab 02/01/19 10:54 Uncollected MAGNESIUM [CHEM] Stat Lab 02/01/19 10:54 Uncollected PRO B-NATRIURETIC PEPTIDE Stat Lab 02/01/19 10:55 Uncollected PROTIME WITH INR [COAG] Stat Lab 02/01/19 10:55 Uncollected TROPONIN T Stat Lab 02/01/19 10:55 Uncollected URINALYSIS W/POSS RFLX CULT [URINALYSIS] Stat Lab 02/01/19 10:57 Uncollected 0.9% Sodium Chloride Inj [Ns] 1,000 ml Med 02/01/19 10:57 Active IV 999 mls/hr Fentanyl Med 02/01/19 10:55 Discontinued 50 microgm IV NOW ONE Fentanyl 100 Microgm/Hr Patch [Duragesic 100 Microgm/Hr Med 02/01/19 10:55 Discontinued Patch] 1 each TD NOW ONE Ketamine Med 02/01/19 10:55 Discontinued 50 mg IV NOW ONE EKG [EKG] Stat Ther 02/01/19 10:54 Ordered Result Diagrams: 02/01/19 11:20 02/01/19 11:20 - REASSESSMENT Reassessment #1 Time Reassessed: 12:35 Status: improving (Better pain control with fentanyl and ketamine. Given IV cardizem x 2 and put on cardizem drip for rate control of new onset AFIB with RVR and CHF. Also given IV lasix and IV dig) - EKG 1 Time of EKG reading by physician:: 11:37 EKG Read and Signed by:: Manpreet May EKG Interpretation (*Must complete 3 of following elements*): Abnormal Rate: 187 Rhythm: atrial fibrillation with rapid ventricular response Mcgrew: normal QRS: RBB Comments: T wave abnormality, consider lateral ischemia - XRAY 1 XRAY Study: Chest Impression: See EMR Report ( CHEST-PORTABLE - 02/01/2019 INDICATION: cp COMPARISON: 10/24/2018 FINDINGS: There is now complete opacification of the left lung. There is probably some volume loss indicating substantial collapse. Stable right chest port in good position. The right lung is clear. IMPRESSION: Complete collapse of the left lung. Electronically signed by Lane Sen 02/01/2019 11:14 AM 02/01/19 1114 Interpreting Physician: Lane Sen MD Dictated Date/Time: 02/01/19 1113 cc: Manpreet May MD; None,PCP) - CONSULTS/PCP/HOSPITALIST Notification #1 *Consult/PCP/Hospitalist*: Dr. Howard's nurse Time Discussed: 11:47 Reason/Comments: Dr. May consulted with Dr. Howard's nurse about patient. Consult Disposition: other (Nurse states Dr. Howard will call back.) #2 Consult: Yu, Dr. Howard's nurse Time Discussed: 11:55 Consult Disposition: other (Yu stated Dr. Howard agrees with the patient being admitted to the hospitalist and also put in a consult with Cardiology.) #3 Consult: FABRIZIO Steward for Hospitalist Time Discussed: 12:31 (Dr. Farrar accepted admit ) Reason/Comments: Dr. May consulted with Nichelle about patient. Consult Disposition: Will see in ED, Admit Departure - Departure Date of Disposition Decision: 02/01/19 Time of Disposition Decision: 12:32 DIAGNOSIS: New onset a-fib, Atrial fibrillation with RVR, New onset of congestive heart failure, Hypocalcemia syndrome, Hypomagnesemia syndrome, Intractable pain Sepsis Qualifiers: Sepsis type: sepsis due to unspecified organism Qualified Code(s): A41.9 - Sepsis, unspecified organism Lung cancer, primary, with metastasis from lung to other site Qualifiers: Laterality: left Qualified Code(s): C34.92 - Malignant neoplasm of unspecified part of left bronchus or lung Disposition: ADMITTED INPATIENT 09 Certified Medical Emergency: Emergent Condition: Critical Referrals and Follow-Ups: None,PCP [Primary Care Provider] - - Critical Care Note This patient required my direct & personal management of CC.: Yes Total Time (mins): 45 ([employer]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 Attestation - Physician/ LILI Attestation Patient care was provided by Advanced Practice Provider:: No The physician spent face to face time with patient:: Yes Advanced Practice Provider documentation review:: Supervising physician onsite and consulted in the evaluation and care of this patient. The physician did have a face to face encounter with the patient. This chart was documented by the indicated scribe, (Tammi Castillo Scribe) and accurately reflects the services I performed and decisions made by me, Manpreet May MD, as attested by the provider's signature.
[2019-02-01] MEDS: CARDIZEM 125 MG in D5W 100 ML IV SCH (13:03)
[2019-02-01] MEDS ORDERED: DILAUDID IV ONE (14:17)
[2019-02-01 14:35] LABS: URINE SOURCE CATH
[2019-02-01 14:43] LABS: BILIRUBIN URINE NEGATIVE (NEGATIVE); BLOOD URINE NEGATIVE (NEGATIVE); COLOR YELLOW; GLUCOSE URINE NEGATIVE (NEGATIVE); KETONE URINE 20 mg/dL (NEGATIVE); LEUKOCYTES URINE NEGATIVE (NEGATIVE); NITRITE URINE NEGATIVE (NEGATIVE); PH URINE 6.5; PROTEIN URINE NEGATIVE (NEGATIVE); SP GRAVITY URINE 1.004; TURBIDITY URINE CLEAR (CLEAR); UROBILINOGEN URINE NORMAL (NORMAL)
[2019-02-01 14:45] LABS: UR EPITHELIAL CELLS <10 /HPF (<10); URINE BACTERIA NEGATIVE /HPF; URINE RBC <10 /HPF (<10); URINE WBC <10 /HPF (<10)
[2019-02-01] MEDS ORDERED: DILAUDID IV PRN (16:47)
[2019-02-01] MEDS ORDERED: ZOFRAN IV PRN (16:47)
[2019-02-01] MEDS ORDERED: TYLENOL PO PRN (16:47)
[2019-02-01] MEDS ORDERED: ATIVAN IV ONE (17:08)
[2019-02-01] MEDS ORDERED: LOPRESSOR IV SCH (17:15)
[2019-02-01] MEDS ORDERED: NARCAN IV PRN (17:34)
[2019-02-01] MEDS ORDERED: MORPHINE PCA IV PRN (17:34)
[2019-02-01] MEDS: NS 1,000 ML IV SCH ×2 (17:58→19:34)
--- NOTE | 2019-02-01 19:23 | HISTORY AND PHYSICAL ---
PRIMARY CARE PHYSICIAN: Dr. Natarajan prior to this admission but patient no longer wants to see Dr. Natarajan in this hospital setting or in an outpatient setting at this time. CHIEF COMPLAINT: Generalized pain that began around 2 a.m. this morning. HISTORY OF PRESENTING ILLNESS: This is a 68-year-old female who presents to [facility] with complaints of generalized pain that started around 2 a.m. this morning. The patient's states that the patient has bone, lung and liver cancer monitor by Dr. Howard. Has had some issues with pain control and several adjustments had been made through Dilaudid pills and a fentanyl patch that was not effective so they went to a morphine pump and had been adjusting the dose and yesterday they increased the dose from 10 mg an hour to 12 mg an hour but the states that the nurse changing out the medication was having some difficulty with the pump and did not appear to be working appropriately and was not giving the boluses and the milligrams per hour and around 2 a.m. she was in excruciating generalized pain. They attempted to call the home health agency and the pump business [facility], did not receive a return call from [facility] but did receive one from the home health nurse who came out and tried to adjust the pump but was unable to, [facility] apparently called back this morning but the patient was already in route to the hospital. When she arrived she was noted to be in atrial fibrillation with RVR at 187. Her sodium was 130, calcium 6.8, magnesium 1.0. ProBNP of 1647. Her chest x- ray showed complete collapse of the left lung. She was given vancomycin 1 gram IV x1, Zosyn 4.5 g IV x1, magnesium 2 g IV x1, ketamine 50 mg IV x1, Lasix 40 mg IV x1, fentanyl patch 50 mcg IV x1, Cardizem 20 mg IV x2 separate dosages and a calcium chloride syringe 1 gram IV x1 was then placed on a Cardizem drip to be admitted to [facility] for further evaluation and treatment. While attending was at bedside, DNR status was discussed with the patient and the patient verbalized wanting to be a DNR level 1 so we have placed that order in the computer and she will be admitted for further evaluation and treatment. PAST MEDICAL HISTORY: Of lung, bone and liver cancer, coronary artery disease with stent, COPD, hyperlipidemia, hypertension, hypothyroidism, peripheral vascular disease and an [place]. PAST SURGICAL HISTORY: Of a tonsillectomy, appendectomy, hysterectomy, cystocele repair, left leg stent, left femoral tibial bypass and a popliteal bypass. FAMILY HISTORY: Reviewed and noncontributory. SOCIAL HISTORY: She currently lives with family. She is a former smoker but does not smoke currently and denies any alcohol or illicit drug use. ALLERGIES: She has no known drug allergies. HOME MEDICATIONS: A current list will need to be obtained, reconciled, reviewed and restarted as appropriate. We will place an order for nursing to update and confirm home medications. LABORATORY DATA: Showed a white blood cell count of 10.70, hemoglobin 10.9, hematocrit 32.7, platelets 302,000. PT and INR of 31.3 and 2.78. Sodium of 130, potassium 3.8, chloride 91, CO2 20, BUN of 10, creatinine 0.5, glucose of 88, calcium 6.8, magnesium of 1. C- reactive protein at 122.39. Cardiac enzyme was negative, proBNP of 1647, plasma lactate of 1.1. Chest x-ray showed a complete collapse of the left lung. EKG showed atrial fibrillation with RVR at 187. REVIEW OF SYSTEMS: She denied any fever, chills, blurred vision, dizziness. She had generalized pain that she rated a 10/10. She was noted to have some palpitations, shortness of breath. Denied any abdominal pain, constipation, diarrhea, burning or hurting with urination. PHYSICAL EXAMINATION: On arrival she had a temperature of 98.1 degrees, pulse was 108, respirations 26, blood pressure 121/71, saturating 94% on room air. Her heart rate remains in the 160s and 70s at this time of being seen as she just had her Cardizem drip hung. HEENT: Normocephalic, atraumatic. Normal ENT inspection. Oropharynx and nares are clear. Pupils are equal, round, reactive to light and accommodation. Extraocular movements are intact. NECK: Normal inspection, normal range of motion. LUNGS: Clear on the right side, absent breath sounds on the left side. Equal lung expansion and chest wall movement is noted. O2 via nasal cannula currently in use. ABDOMEN: Soft, nontender, nondistended. Bowel sounds are present x4 quadrants. MUSCULOSKELETAL: She has 3/5 strength x4 extremities, is noted to have 2+ pitting edema to bilateral lower extremities. NEUROLOGICAL: The cranial nerves 2-12 appear grossly intact. ASSESSMENT: 1. New onset atrial fibrillation with rapid ventricular response. 2. Hyponatremia. 3. Hypomagnesemia. 4. An elevated proBNP, possibly a new onset congestive heart failure. 5. Generalized pain secondary to lung, bone and liver cancer. PLAN: She will be admitted to the CIC unit, placed on telemetry. O2 per protocol. Regular diet. We will consult oncologist Dr. Howard, obtain an echocardiogram in the a.m. She is on a Cardizem drip per protocol at this time. Will give her Dilaudid 2 mg IV x1 now then 2 mg IV q.3-4 hours p.r.n. We are going to call [facility] to disconnect the morphine pump as it does not appear to be working at this time and may switch her over to a Dilaudid FERRY HAND once that happens and will place her on Zosyn 3.375 g IV q.6 and recheck a CBC, BMP and magnesium in the a.m. Further orders after being seen by attending. Again, the patient will be a DNR 1. We will also do palliative care consult with this patient and further orders after seen by construction consultant as well. Dictated by FABRIZIO Epperson for Frank Salas MD Addendum: Patient seen and examined by myself. Agree with FABRIZIO note. It reflects my assessment and plan. Patient is being admitted to hospital for uncontrolled pain and atrial fibrillation with RVR. Will start Cardizem drip and Dilaudid FERRY HAND pump because morphine pump was not working. Oncology has been consulted. Will follow recommendations. cc: FABRIZIO Epperson MD [facility]
[2019-02-01] MEDS: DILAUDID PCA VIAL IV PRN (22:11)
[2019-02-01] MEDS: ZOSYN 3.375 GM in NS 50 ML IV SCH (22:12)
[2019-02-02] MEDS: NS 1,000 ML IV SCH ×3 (03:07→18:28)
[2019-02-02] MEDS: ZOSYN 3.375 GM in NS 50 ML IV SCH ×3 (03:07→15:02)
[2019-02-02] MEDS ORDERED: CALMOSEPTINE OINTMENT TOP PRN (03:19)
[2019-02-02] MEDS: CARDIZEM 125 MG in D5W 100 ML IV SCH ×3 (04:10→23:04)
[2019-02-02] MEDS ORDERED: LANOXIN IV ONE ×3 (05:25→08:46)
[2019-02-02 06:05] LABS: BASO# 0.01 X1000 (0.0-0.2); BASO% 0.1 % (0.0-0.8); EOS# 0.06 X1000 (0.0-0.7); EOS% 0.6 % (0.0-10.0); HEMATOCRIT 31.3 % (37.0-47.0); HEMOGLOBIN 10.1 g/dL (12.0-16.0); IMM GRAN# 0.05 X1000 (0.0-0.04); IMM GRAN% 0.5 % (0.0-0.5); LYMPH# 0.59 X1000 (1.2-3.4); LYMPH% 5.9 % (20.5-51.1); MCH 28.2 PG (27-31); MCHC 32.3 g/dL (33-37); MCV 87.4 FL (81-99); MONO# 0.76 X1000 (0.11-0.59); MONO% 7.5 % (1.7-9.3); MPV 9.9 FL (7.4-10.4); NEUT# 8.61 X1000 (1.4-6.5); NEUT% 85.4 % (42.2-75.2); PLT 289 X1000 (130-400); RBC 3.58 XMIL (4.2-5.4); RDW 18.6 % (11.5-14.5); WBC 10.08 X1000 (4.8-10.8)
[2019-02-02 06:22] LABS: AGAP 16; ALBUMIN 2.7 g/dL (3.5-5.0); ALKALINE PHOSPHATASE 121 U/L (32-104); BUN 6 mg/dL (8-22); CALCIUM 7.1 mg/dL (8.8-10.2); CHLORIDE 93 mmol/L (98-107); COSMO 260; CREATININE 0.4 mg/dL (0.5-0.9); ESTIMATED GFR > 60; GLUCOSE 97 mg/dL (70-104); GOT 20 U/L (10-30); GPT 5 U/L (10-36); MAGNESIUM 1.2 mg/dL (1.5-2.7); POTASSIUM 2.8 mmol/L (3.5-5.1); SODIUM 131 mmol/L (136-145); TCO2 22 mmol/L (25-35); TOTAL BILIRUBIN 0.39 mg/dL (0.20-1.00); TOTAL PROTEIN 5.4 g/dL (6.3-8.3)
[2019-02-02] MEDS ORDERED: MAGNESIUM SULFATE 4 GM/S.W.I. 4 GM/100 ML IVPB IV ONE (08:08)
[2019-02-02] MEDS: CALMOSEPTINE OINTMENT TOP SCH ×4 (09:05→20:53)
[2019-02-02] MEDS: SYNTHROID PO SCH (09:32)
[2019-02-02] MEDS: POTASSIUM CHLORIDE 60 MEQ in NS 500 ML IV SCH ×2 (09:32→16:07)
[2019-02-02] MEDS: OXY IR PO SCH ×3 (09:32→21:00)
[2019-02-02] MEDS: DILAUDID PCA VIAL IV PRN (18:28)
--- NOTE | 2019-02-02 19:06 | PROGRESS NOTE ---
DATE: 02/02/2019 SUBJECTIVE: The patient has been started on Dilaudid PAINTER TOUCH UP pump. She reports that her pain is better controlled but not completely gone. She reports some intermittent palpitations, denies any fever, chills, headaches or dizziness. OBJECTIVE: Vitals: Temp 97.6, heart rate 153, respiratory rate 12, blood pressure 102/65, O2 saturation 95% 2 L nasal cannula. General examination: Chronically ill- appearing and frail, 68- year-old female, looking very malnourished, lying in bed, in no acute distress. HEENT: Head is normocephalic, atraumatic. Mucous membranes moist. Neck: No JVD noted. No carotid bruit. No lymphadenopathy. Cardiovascular: S1, S2 heard. No murmurs, gallops, or rubs. Regular rate and rhythm. Respiratory exam: Absent breath sounds on the left side, and the right side clear bilaterally to auscultation. Patient is not using any accessory muscles or having work of breathing. Abdomen: Soft, a little bit distended. Nontender to palpation. Bowel sounds present. No organomegaly. Extremities: No clubbing or cyanosis. 2+ pitting edema in both lower extremities. Neurological: Patient is alert and oriented x3. Moves 4 extremities. LABORATORY DATA: White cell count 10.08, hemoglobin 10.1, hematocrit 31.3, platelets 289,000. Sodium 2.8, magnesium 1.2, calcium 7.1, potassium 2.8. ASSESSMENT AND PLAN: 1. New onset atrial fibrillation with rapid ventricular response. I feel like it had been triggered by excruciating pain. Patient had morphine PAINTER TOUCH UP pump that was not working properly. Her heart rate was elevated so she was started on Cardizem drip and is still having elevated heart rate. In that regard and considering his normal renal function, what I am going to do is to provide Lanoxin 4 amps of 125 mcg on top of the Cardizem drip. We will continue to monitor this patient closely. If that fails, we will try some beta-blockers as well, but we will pay attention to current blood pressure. 2. General pain secondary to lung, bone and liver cancer. The patient is on PAINTER TOUCH UP pump with Dilaudid but not completely controlling the pain very well. So, I am going to start oxycodone IR 5 mg p.o. q.6 hours. We will monitor this patient closely. 3. Hypomagnesemia. Magnesium is still very low so we will provide 4 g of magnesium sulfate today. 4. Hypokalemia. Potassium is 2.9 so we will provide IV potassium as well. 5. Disposition. At this point, we will continue to monitor this patient closely in the [facility]. Patient is DNR level 1. cc: Frank Salas MD MTDErrol
[2019-02-02] MEDS: LEVAQUIN 750 MG/D5W 750 MG/150 ML IVPB IV SCH (21:00)
[2019-02-03] MEDS: NS 1,000 ML IV SCH ×3 (03:53→21:19)
[2019-02-03] MEDS: OXY IR PO SCH ×4 (03:53→21:15)
[2019-02-03 06:10] LABS: BASO# 0.01 X1000 (0.0-0.2); BASO% 0.1 % (0.0-0.8); EOS# 0.02 X1000 (0.0-0.7); EOS% 0.3 % (0.0-10.0); HEMATOCRIT 30.8 % (37.0-47.0); HEMOGLOBIN 9.6 g/dL (12.0-16.0); IMM GRAN# 0.04 X1000 (0.0-0.04); IMM GRAN% 0.5 % (0.0-0.5); LYMPH# 0.41 X1000 (1.2-3.4); LYMPH% 5.2 % (20.5-51.1); MCHC 31.2 g/dL (33-37); MCV 89.8 FL (81-99); MONO# 0.64 X1000 (0.11-0.59); MONO% 8.1 % (1.7-9.3); MPV 9.6 FL (7.4-10.4); NEUT# 6.83 X1000 (1.4-6.5); NEUT% 85.8 % (42.2-75.2); PLT 280 X1000 (130-400); RBC 3.43 XMIL (4.2-5.4); RDW 18.5 % (11.5-14.5); WBC 7.95 X1000 (4.8-10.8)
[2019-02-03 06:19] LABS: AGAP 13; ALBUMIN 2.6 g/dL (3.5-5.0); BUN 3 mg/dL (8-22); CHLORIDE 95 mmol/L (98-107); COSMO 257; CREATININE 0.3 mg/dL (0.5-0.9); ESTIMATED GFR > 60; GLUCOSE 91 mg/dL (70-104); MAGNESIUM 1.3 mg/dL (1.5-2.7); PHOSPHORUS 1.2 mg/dL (2.7-4.5); POTASSIUM 3.5 mmol/L (3.5-5.1); SODIUM 130 mmol/L (136-145); TCO2 22 mmol/L (25-35)
[2019-02-03] MEDS ORDERED: CALCIUM CHLORIDE 1 GM in NS 100 ML IV ONE (06:44)
[2019-02-03] MEDS ORDERED: MAGNESIUM SULFATE 4 GM/S.W.I. 4 GM/100 ML IVPB IV ONE (07:53)
[2019-02-03] MEDS ORDERED: DURAGESIC 75 MICROGM/HR PATCH TD SCH (08:45)
[2019-02-03] MEDS ORDERED: LANOXIN PO SCH (09:00)
[2019-02-03] MEDS ORDERED: SODIUM PHOSPHATE 35 MMOL in NS 250 ML IV ONE (09:00)
--- NOTE | 2019-02-03 09:01 | PROGRESS NOTE ---
DATE: 02/03/2019 SUBJECTIVE: The patient is on Dilaudid DIAL LATHE OPERATOR pump and also oxycodone, but she reports that she is still in pain. Denies any palpitations or chest pain. No shortness of breath. OBJECTIVE: Vital Signs: Temperature 97.8 degrees, heart rate 106, respiratory rate 18, blood pressure 191/53, O2 saturation 96% on 2 L nasal cannula. General: This is a chronically ill- appearing and frail, 68-year-old, female, looking very malnourished, lying in bed in mild distress because of pain. HEENT: Head is normocephalic, atraumatic. Alopecia noted. Mucous membranes moist. Neck: No JVD noted. No carotid bruit. No thyromegaly. Cardiovascular: S1, S2 heard. No murmurs, gallops, or rubs. Regular rate and rhythm. Respiratory: Decreased breath sounds on the left side. On the right side, it is clear to auscultation. Patient not using any accessory muscles or having work of breathing. Abdomen: A little bit distended. Nontender to palpation. Bowel sounds present. No organomegaly. Extremities: No clubbing or cyanosis, but 2+ pedal edema noted in both lower extremities. Neurological: The patient is alert and oriented x3. Moves all 4 extremities. LABORATORY DATA: Remarkable for sodium 130, potassium 3.5, calcium 7.0. Phosphorus 1.2, magnesium 1.3. ASSESSMENT AND PLAN: 1. New-onset atrial fibrillation with rapid ventricular response. Now with Cardizem drip and also digoxin. That condition is well controlled. Her heart rate has been ranging between 88 and 105. She is receiving 10 mg per hour Cardizem drip, and also 125 mcg of digoxin daily. I think we are going to continue with the same management. 2. Generalized pain secondary to lung cancer with metastasis to bone, spine, and liver. The patient is on Dilaudid patient-controlled analgesia and oxycodone IR 5 mg every 6 hours scheduled. That is unfortunately not controlling the pain, so at this point, what we are going to do is to increase the dose of oxycodone to 10 mg, and restart her fentanyl patch. That was originally 25 mcg, so we are going to increase it to 50 mcg and see if that helps. Will continue to monitor this patient closely. 3. Electrolyte imbalance. Magnesium, calcium, and phosphorus are low. We are going to repeat those today. 4. Disposition. Will continue to monitor this patient closely. The patient is DO NOT RESUSCITATE level 1. cc: Frank Salas MD
[2019-02-03] MEDS: SYNTHROID PO SCH (09:12)
[2019-02-03] MEDS: CALMOSEPTINE OINTMENT TOP SCH ×4 (09:13→21:34)
[2019-02-03] MEDS: NEUTRA-PHOS PO SCH ×4 (09:13→21:15)
[2019-02-03] MEDS: CARDIZEM 125 MG in D5W 100 ML IV SCH ×2 (09:16→22:43)
[2019-02-03] MEDS: CITRACAL + D PO SCH ×2 (09:23→21:15)
--- NOTE | 2019-02-03 09:29 | ECHO REPORT ---
ORDER DATE: 02/02/2019 MEASUREMENTS: Septal thickness 1.0, left ventricular internal diameter in diastole 4.4, posterior wall thickness 1.0, left ventricular internal diameter in systole 2.4, aortic root 2.3. SUMMARY: 1. Technically difficult study due to limited acoustic window quality. 2. Aortic valve is trileaflet and demonstrates mild to moderate sclerotic change, particularly of noncoronary cusp. Aortic valve opening appears to be adequate. Peak gradient across the aortic valve is 30 mmHg with a mean gradient of 14 mmHg. Doppler velocities across the aortic valve appear most likely elevated due to a hyperdynamic left ventricle. There is no significant aortic stenosis. Mitral, tricuspid, and pulmonic valves are without evidence of structural abnormality with mild tricuspid regurgitation and trace pulmonic insufficiency. The estimated systolic PA pressure by Doppler is 40 mmHg, suggesting mild pulmonary hypertension. The aortic root is normal in size. 3. Normal left ventricular dimensions demonstrated. The left ventricle appears hyperdynamic with an estimated left ventricular ejection fraction of at least 75%. No regional wall motion abnormalities are evident. Doppler suggests grade 1, at least 75%. Left atrium is mildly enlarged. The right atrium and right ventricle are grossly normal in size. 4. No pericardial effusion. 5. Appearance of inferior vena cava suggests normal central venous pressure. cc: MD Nichelle Gonzales CRNP
[2019-02-03] MEDS: DILAUDID PCA VIAL IV PRN (10:03)
[2019-02-03] MEDS: LEVAQUIN 750 MG/D5W 750 MG/150 ML IVPB IV SCH (21:15)
[2019-02-04] MEDS: DILAUDID PCA VIAL IV PRN ×2 (00:48→18:21)
[2019-02-04] MEDS: OXY IR PO SCH ×4 (02:26→21:13)
[2019-02-04] MEDS: NS 1,000 ML IV SCH ×4 (02:34→21:27)
[2019-02-04 05:51] LABS: BASO# 0.01 X1000 (0.0-0.2); BASO% 0.1 % (0.0-0.8); EOS# 0.03 X1000 (0.0-0.7); EOS% 0.4 % (0.0-10.0); HEMATOCRIT 30.8 % (37.0-47.0); HEMOGLOBIN 9.8 g/dL (12.0-16.0); IMM GRAN# 0.05 X1000 (0.0-0.04); IMM GRAN% 0.7 % (0.0-0.5); LYMPH# 0.42 X1000 (1.2-3.4); LYMPH% 5.7 % (20.5-51.1); MCH 28.2 PG (27-31); MCHC 31.8 g/dL (33-37); MCV 88.8 FL (81-99); MONO# 0.49 X1000 (0.11-0.59); MONO% 6.6 % (1.7-9.3); MPV 9.6 FL (7.4-10.4); NEUT% 86.5 % (42.2-75.2); PLT 286 X1000 (130-400); RBC 3.47 XMIL (4.2-5.4); RDW 18.1 % (11.5-14.5)
[2019-02-04 06:02] LABS: AGAP 12; ALBUMIN 2.6 g/dL (3.5-5.0); BUN 2 mg/dL (8-22); CHLORIDE 94 mmol/L (98-107); COSMO 259; CREATININE 0.2 mg/dL (0.5-0.9); ESTIMATED GFR > 60; GLUCOSE 96 mg/dL (70-104); MAGNESIUM 1.3 mg/dL (1.5-2.7); PHOSPHORUS 2.6 mg/dL (2.7-4.5); SODIUM 131 mmol/L (136-145); TCO2 25 mmol/L (25-35)
--- NOTE | 2019-02-04 07:25 | EKG Report ---
Test Performed on : 02/01/2019 5:29:53 PM Test Reason : Rhythm change Blood Pressure : / mmHG Vent. Rate : 106 BPM Atrial Rate : 106 BPM P-R Int : 122 ms QRS Dur : 132 ms QT Int : 382 ms P-R-T Axes : 075 068 042 degrees QTc Int : 507 ms Sinus tachycardia. with premature atrial complexes. with aberrant conduction. Right bundle branch block Abnormal ECG When compared with ECG of 01-FEB-2019 11:37, (Unconfirmed) Sinus rhythm. has replaced Atrial fibrillation. Vent. rate has decreased BY 81 BPM Non-specific change in ST segment in Inferior leads Confirmed by Kimberley CEVALLOS, Eddie Corrigan ([id number]) on 02/04/2019 5:05:30 PM
[2019-02-04] MEDS ORDERED: POTASSIUM CHLORIDE 60 MEQ in NS 500 ML IV ONE (08:14)
[2019-02-04] MEDS ORDERED: MAGNESIUM SULFATE 4 GM/S.W.I. 4 GM/100 ML IVPB IV ONE (08:14)
[2019-02-04] MEDS ORDERED: CALCIUM GLUCONATE 2 GM in NS 100 ML IV ONE (08:15)
[2019-02-04] MEDS ORDERED: CORDARONE 360 MG/D5W 360 MG/200 ML IV.SOLN IV ONE (08:15)
[2019-02-04] MEDS ORDERED: ROCEPHIN 2 GM in NS 50 ML IV SCH (08:30)
[2019-02-04] MEDS ORDERED: EMLA CREAM TOP PRN (08:41)
[2019-02-04] MEDS: SYNTHROID PO SCH (09:21)
[2019-02-04] MEDS: NEUTRA-PHOS PO SCH ×4 (09:21→21:12)
[2019-02-04] MEDS: CITRACAL + D PO SCH ×2 (09:21→21:34)
[2019-02-04] MEDS: ATIVAN IV PRN ×2 (09:21→15:11)
[2019-02-04] MEDS: CALMOSEPTINE OINTMENT TOP SCH ×4 (09:22→21:28)
--- NOTE | 2019-02-04 10:24 | EKG Report ---
Test Performed on : 02/04/2019 10:12:58 AM Test Reason : afib Blood Pressure : / mmHG Vent. Rate : 105 BPM Atrial Rate : 105 BPM P-R Int : 134 ms QRS Dur : 130 ms QT Int : 356 ms P-R-T Axes : 075 067 028 degrees QTc Int : 470 ms Sinus tachycardia. Right bundle branch block Abnormal ECG When compared with ECG of 01-FEB-2019 17:29, (Unconfirmed) aberrant conduction. is no longer present Confirmed by Kimberley CEVALLOS, Eddie Corrigan ([id number]) on 02/04/2019 5:06:40 PM
--- NOTE | 2019-02-04 11:31 | PROGRESS NOTE ---
DATE: 02/04/2019 SUBJECTIVE: The patient currently is on Dilaudid pump, oxycodone, and fentanyl patch, but still complaining of pain. Reports some palpitation back again. No shortness of breath. OBJECTIVE: Vital Signs: Temperature 97.4 degrees, heart rate 105, respiratory rate 17, blood pressure 96/59, O2 saturation 94% on 2 L nasal cannula. General Examination: This is a chronically ill-appearing and frail 68-year-old female, looking very malnourished, lying in bed in mild distress because of the pain. HEENT: Head is normocephalic, atraumatic with alopecia noted. Mucous membranes moist. Neck: No JVD noted. No carotid bruits. No lymphadenopathy. No thyromegaly. Cardiovascular: S1, S2 heard. No murmurs, gallops, or rubs. Regular rate and rhythm. Respiratory: Decreased breath sounds minimally in the left base. On the right side is clear to auscultation. The patient is not using any accessory muscles or having work of breathing. Abdomen: Soft. Nontender to palpation. Bowel sounds present. No organomegaly. Extremities: No clubbing or cyanosis, but there is 2+ pitting edema noted in both lower extremities. Neurological: Patient is alert and oriented x3. Moves 4 extremities. LABORATORY DATA: The sodium is 131, potassium 3.0, calcium 8.0, phosphorus 2.6, and magnesium 1.3. ASSESSMENT AND PLAN: 1. New onset atrial fibrillation with rapid ventricular response. Patient has been on Cardizem drip and also digoxin, and yesterday the heart rate had been well controlled, but today the heart rate started going up again in the range of 160s to 180s, so at this point, I decided to stop digoxin and start amiodarone drip and we are going to consult Cardiology. The echocardiogram was basically unremarkable. At this point, we will continue with the same management. 2. Generalized pain secondary to lung cancer with metastases to spine, liver, and bone. The patient at admission was on a morphine pump that was not working. She was getting 12 mg of morphine per hour. Here, I started her on Dilaudid BRUSH MAKER MACHINE pump plus oxycodone initially 5 mg p.o. q.6 h. Scheduled, but I increased it to 10 q.6 h. scheduled. She was using at home a fentanyl patch 25 mg every 72 hours that I increased to 75 mg every 72 hours. With all those changes just done during the last 24 to 48 hours, the patient still complains of pain. In that regard, I prefer to consult hospice for uncontrolled pain, and we will go from there. The patient, before moving to that step, prefers to talk with her primary oncologist Dr. Howard. She wants to talk to him to see if she is going to hospice or not. In the meantime, we will continue to monitor this patient closely. 3. Electrolyte imbalance. Magnesium continues to be low, despite receiving 2 4 g of magnesium every 24 hours. Also phosphorus is low and calcium as well so we are going to replenish all those elements. 4. Left lung collapse. We will order CT of thorax and will consult Pulmonary. DISPOSITION: We will continue to monitor this patient closely in the [facility]. CODE STATUS: Patient is DNR level 1. cc: Frank Salas MD MTDD
[2019-02-04] MEDS: CARDIZEM CD PO SCH (11:39)
--- NOTE | 2019-02-04 11:54 | CARDIOLOGY CONSULTATION ---
DATE: 02/04/2019 REASON FOR CONSULTATION: Cardiology was consulted for atrial fibrillation. HISTORY OF PRESENT ILLNESS: Ms. Isabella Sheets is a 68-year-old, lady with a history of generalized pain that started around 2 a.m. 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 She is undergoing chemotherapy an extensive pain control medication she is on. She is admitted with generalized body ache, pain. In the past, she has been on Coumadin for peripheral vascular disease. She has known coronary artery disease. She denies anginal symptoms. She was started on a Cardizem drip. Currently, she is in sinus rhythm. When she came in, she had a proBNP of 1647. Chest x-ray showed complete collapse of the left lung. She was given vancomycin, Zosyn, ketamine. She has a fentanyl patch and started on a Cardizem drip. She is Do Not Resuscitate level 1. REVIEW OF SYSTEMS: A 14-point review of systems was done. GI System: There is no history of nausea, vomiting, or diarrhea. There is no history of hematemesis or melena. Central Nervous System: No focal weakness to suggest a CVA or TIA. Genitourinary System: There is no dysuria or hematuria. PAST MEDICAL HISTORY: 1. Metastatic lung cancer, neuroendocrine carcinoma with metastasis to the liver and bone. Undergoing chemotherapy. 2. Coronary artery disease, status post drug-eluting stent to obtuse marginal artery on 11/08/2016. 3. Hypertension. 4. Peripheral vascular disease. 5. Ex-smoker. 6. History of hypothyroidism. 7. Hypertension. 8. Hyperlipidemia. 9. COPD. PAST SURGICAL HISTORY: Other surgical history includes: 1. Left femorotibial bypass and redo surgery with bypass to popliteal. 2. Tonsillectomy. 3. Appendectomy. 4. Hysterectomy. 5. Cystocele repair. SOCIAL HISTORY: Positive for tobacco abuse. She has quit now. She is disabled. FAMILY HISTORY: Noncontributory. PHYSICAL EXAMINATION: Vital Signs: Blood pressure 96/59, heart rate 105, patient afebrile. First and second heart sounds were heard. There was no murmur. Respiratory System: Decreased breaths sounds on the left side. Abdomen: Soft, nontender. There was no guarding or rigidity. Bowel sounds were heard. Central Nervous System: Alert and oriented. Was moving all 4 extremities. Examination of extremities revealed pedal edema, left greater than the right, with old scars from her femorotibial bypass surgery. There were little cellulitic changes on the left side. ASSESSMENT AND PLAN: 1. Ms. Isabella Sheets is a 68-year-old, lady with a history of coronary artery disease, non-Q-wave myocardial infarction and drug-eluting stent placement to the obtuse marginal artery in 2017, hypertension, peripheral vascular disease. She is admitted with generalized pain. She was noted to be in atrial fibrillation. From a cardiac standpoint, she is currently in sinus rhythm. We will put her on Cardizem 120 mg a day. As far as anticoagulation is concerned, she was anticoagulated for severe peripheral vascular disease. We will restart her Coumadin. This is for stroke prophylaxis as well. 2. She has known coronary artery disease. No anginal symptoms at the present time. 3. She has metastatic lung cancer, is undergoing chemotherapy. Her chest x-ray revealed collapse left lung and a CT of the thorax has been ordered. 4. Hypertension. Continue with home medications. 5. Hypothyroidism. Continue with home medications. 6. Her echocardiogram revealed preserved left ventricular systolic function. There was no pericardial effusion. Thank you for the consult. We will follow hospital course. cc: Marshall Sanders MD
[2019-02-04 12:05] LABS: INR 1.91; PROTIME 23.3 Seconds (11.0-16.0)
[2019-02-04] MEDS: MAXIPIME 1 GM in NS 50 ML IV SCH (13:50)
--- NOTE | 2019-02-04 16:13 | Diag Imaging Result Doc PS360 ---
EXAM: CT THORAX W/O CONTRAST 02/04/2019 HISTORY: collapsed left lung, pna TECHNIQUE: This exam was performed using automated exposure control, adjustment of mA or kV according to patient size, and/or use of iterative reconstruction technique. COMMENT: The current examination is compared with the previous study of 09/27/2018. The left lung is completely airless and there is apparent multiple lobulated masses in the parahilar region extending into the hilum with obstruction of the left mainstem bronchus. There are a number of enlarged prevascular nodes which were not demonstrated at the time of the previous study. There is apparent worsening of the subcarinal and hilar adenopathy present at the time the previous study although this is not as well demonstrated due to the lack of contrast on the current study. Due to the patient's condition the study was acquired in a semi-coronal projection. There is supraclavicular adenopathy particularly on the left. There is pleural fluid on the left and to some extent in the posterior costophrenic sulcus on the right side. There is a mass in the left hepatic lobe measuring 2.9 cm in diameter which is not clearly identifiable on the previous study. There is enlargement of the left adrenal gland which was not present previously. There is anasarca which was not present previously. No definite acute osseous abnormalities are present. IMPRESSION: 1. Complete atelectasis of the left lung secondary to obstructing mass. 2. Hepatic and left adrenal metastatic disease. 3. Worsened left hilar and mediastinal adenopathy. Electronically signed by Owen Newby 02/04/2019 4:10 PM
[2019-02-04] MEDS: DUONEB (A & A) INH SCH ×3 (16:53→23:40)
[2019-02-04] MEDS: MUCOMYST 20% INH SCH (19:23)
[2019-02-04] MEDS ORDERED: CORDARONE 540 MG in D5W 289.2 ML IV ONE (20:15)
[2019-02-04] MEDS: COUMADIN PO SCH (21:13)
--- NOTE | 2019-02-04 21:14 | PULMONOLOGY CONSULTATION ---
DATE: 02/04/2019 REQUESTING PHYSICIAN: Dr. Farrar. REASON FOR CONSULTATION: Left lung collapse. HISTORY OF PRESENT ILLNESS: Ms Sheets is a 68-year-old white female who was diagnosed with extensive stage poorly differentiated neuroendocrine carcinoma 10/01/2018. She has been followed by Dr. Howard. She has undergone radiation therapy. Details of her chemotherapy treatments are not known. The patient has had difficulty with ongoing pain issues. The patient was admitted to the hospital 02/01/2019 with increasing abdominal pain. Chest x-ray reveals complete whiteout of the left lung. PAST MEDICAL HISTORY: 1. Small cell carcinoma involving the lung, bone, and liver. 2. Coronary artery disease with stent placement. 3. Atrial fibrillation. 4. Peripheral vascular disease. 5. Chronic obstructive pulmonary disease. 6. Hypertension. 7. Dyslipidemia. SOCIAL HISTORY: Prior tobacco use. No alcohol use listed. FAMILY HISTORY: Noncontributory. REVIEW OF SYSTEMS: Notable for generalized weakness, shortness of breath, cough, generalized pain and fatigue. PHYSICAL EXAMINATION: General: Reveals a frail, chronically ill-appearing white female with bitemporal wasting. Blood pressure 100/57, heart rate 99, respiratory rate 17, oxygen saturation 100%. HEENT: Pupils are equal and reactive. Oropharynx appears clear. Neck: Supple. Chest: Reveals near absence of breath sounds on the left side. Cardiac: S1, S2 with a regular rhythm. Abdomen: Soft. Extremities: Reveal trace edema. LABORATORIES: CT scan of the thorax reveals multiple lobulated masses in the left perihilar region extending into the hilum with obstruction of the left mainstem with increased number of prevascular nodes, which was not present on prior scan in September. She has a increased left hepatic lobe mass measuring 2.9 cm. She also has enlargement of the left adrenal gland which was not present in September. IMPRESSION: A 68-year-old with widely metastatic neuroendocrine cell carcinoma, who has had significant progression of disease over the last 4 months despite chemotherapy. She continues to have significant pain. She now has total obstruction of the left main stem. Current performance status has an ECOG score of 3 to 4. In addition to the above, patient also has hypoxemic respiratory failure with atrial fibrillation. DISCUSSION: A 68-year-old with problems outlined above. The patient has progressive tumor affecting the left mainstem. This does not represent stent able disease. Unfortunately, there is nothing to offer from a pulmonary medicine standpoint. RECOMMENDATIONS: Continue comfort measures and end of life discussions. cc: Richard Herrera MD
[2019-02-05] MEDS: MAXIPIME 1 GM in NS 50 ML IV SCH ×2 (00:23→13:34)
[2019-02-05] MEDS: OXY IR PO SCH ×4 (02:36→20:06)
[2019-02-05] MEDS: DUONEB (A & A) INH SCH ×6 (03:15→23:35)
[2019-02-05 05:27] LABS: INR 1.96; PROTIME 23.8 Seconds (11.0-16.0)
[2019-02-05 05:30] LABS: BASO# 0.01 X1000 (0.0-0.2); BASO% 0.1 % (0.0-0.8); EOS# 0.01 X1000 (0.0-0.7); EOS% 0.1 % (0.0-10.0); HEMOGLOBIN 9.8 g/dL (12.0-16.0); IMM GRAN# 0.03 X1000 (0.0-0.04); IMM GRAN% 0.3 % (0.0-0.5); LYMPH# 0.46 X1000 (1.2-3.4); LYMPH% 4.8 % (20.5-51.1); MCH 28.6 PG (27-31); MCHC 31.6 g/dL (33-37); MCV 90.4 FL (81-99); MONO# 0.73 X1000 (0.11-0.59); MONO% 7.5 % (1.7-9.3); MPV 9.5 FL (7.4-10.4); NEUT# 8.44 X1000 (1.4-6.5); NEUT% 87.2 % (42.2-75.2); PLT 290 X1000 (130-400); RBC 3.43 XMIL (4.2-5.4); RDW 18.5 % (11.5-14.5); WBC 9.68 X1000 (4.8-10.8)
[2019-02-05 05:49] LABS: AGAP 10; ALBUMIN 2.4 g/dL (3.5-5.0); BUN 4 mg/dL (8-22); CALCIUM 8.4 mg/dL (8.8-10.2); CHLORIDE 94 mmol/L (98-107); COSMO 262; CREATININE 0.3 mg/dL (0.5-0.9); ESTIMATED GFR > 60; GLUCOSE 111 mg/dL (70-104); MAGNESIUM 1.3 mg/dL (1.5-2.7); PHOSPHORUS 2.7 mg/dL (2.7-4.5); POTASSIUM 3.5 mmol/L (3.5-5.1); SODIUM 132 mmol/L (136-145); TCO2 28 mmol/L (25-35)
[2019-02-05] MEDS: MUCOMYST 20% INH SCH ×2 (07:37→19:10)
[2019-02-05] MEDS: CARDIZEM CD PO SCH (08:06)
--- NOTE | 2019-02-05 08:09 | EKG Report ---
Test Performed on : 02/05/2019 08:01:38 AM Test Reason : increased HR Blood Pressure : / mmHG Vent. Rate : 171 BPM Atrial Rate : 150 BPM P-R Int : 000 ms QRS Dur : 118 ms QT Int : 242 ms P-R-T Axes : 000 063 -62 degrees QTc Int : 408 ms Atrial fibrillation. with rapid ventricular response. with premature ventricular or aberrantly conduc jimena complexes. Right bundle branch block T wave abnormality, consider inferolateral ischemia Abnormal ECG When compared with ECG of 04-FEB-2019 10:12, Atrial fibrillation. has replaced Sinus rhythm. Vent. rate has increased BY [address] now depressed in Inferior leads T wave inversion now evident in Inferior leads Confirmed by Kimberley CEVALLOS, Eddie Corrigan ([id number]) on 02/05/2019 5:31:18 PM
[2019-02-05] MEDS ORDERED: MAGNESIUM SULFATE 2 GM/S.W.I. 2 GM/50 ML IVPB IV ONE (09:26)
[2019-02-05] MEDS: CITRACAL + D PO SCH ×2 (09:30→20:06)
[2019-02-05] MEDS: NEUTRA-PHOS PO SCH ×4 (09:30→20:05)
[2019-02-05] MEDS: SYNTHROID PO SCH (09:30)
[2019-02-05] MEDS: CALMOSEPTINE OINTMENT TOP SCH ×4 (09:30→20:15)
[2019-02-05] MEDS ORDERED: DILAUDID IV ONE (10:16)
[2019-02-05] MEDS: DILAUDID PCA VIAL IV PRN (11:05)
[2019-02-05] MEDS: NS 1,000 ML IV SCH (11:46)
[2019-02-05] MEDS: ATIVAN IV PRN (14:46)
[2019-02-05] MEDS: LANOXIN PO SCH (17:19)
[2019-02-05] MEDS ORDERED: CARDIZEM PO ONE (18:27)
[2019-02-05] MEDS: MIRALAX PO SCH (20:05)
[2019-02-05] MEDS: COUMADIN PO SCH (20:06)
[2019-02-05] MEDS: SENOKOT PO SCH (20:06)
--- NOTE | 2019-02-05 20:32 | Diag Imaging Result Doc PS360 ---
EXAM: ABDOMEN FLAT/UPRIGHT HISTORY: constipation TECHNIQUE: Flat and upright, two views COMPARISON: Recent chest CT FINDINGS: The left lung remains opacified. There is stool in the right colon. No organomegaly. No foreign body. IMPRESSION: Constipation Electronically signed by Andrey Munoz 02/05/2019 8:30 PM
--- NOTE | 2019-02-05 21:49 | PULMONOLOGY PROGRESS NOTE ---
DATE: 02/05/2019 SUBJECTIVE: The patient was sleeping but arousable. She reports her pain control has marginally improved. She denies symptoms at rest. OBJECTIVE: Vital Signs: Blood pressure 98/64, heart rate 126, respiratory rate 26, oxygen saturation 100% on 2 L per nasal cannula. HEENT: Pupils are equal and reactive. Oropharynx is clear. There is bitemporal wasting. Neck: Supple. Chest: Reveals near absence of breath sounds in the left hemithorax. Cardiac exam: Increased rate, irregular rhythm. Abdomen: Scaphoid and soft. Extremities: Without edema. LABORATORIES: White blood count 9.68, hemoglobin 9.8, platelet count 290,000. Sodium 132, potassium 3.5, chloride 94, bicarbonate 28, BUN 4, creatinine 0.3. IMPRESSION: A 68-year-old with widely metastatic lung cancer, complete atelectasis of the left lung due lung cancer, ongoing pain from metastatic disease, hypoxemic respiratory failure. Plan: 1. Continue Oxygen therapy. 2. Continue comfort measures. 3. Poor prognosis cc: Richard Herrera MD [facility] [place]
[2019-02-06] MEDS: MAXIPIME 1 GM in NS 50 ML IV SCH ×2 (00:38→14:26)
[2019-02-06] MEDS: DUONEB (A & A) INH SCH ×6 (03:25→23:09)
[2019-02-06] MEDS: OXY IR PO SCH ×5 (03:35→22:14)
[2019-02-06] MEDS: NS 1,000 ML IV SCH ×2 (03:36→20:15)
--- NOTE | 2019-02-06 04:11 | PROGRESS NOTE ---
DATE: 02/05/2019 SUBJECTIVE: The patient complains of severe back pain. OBJECTIVE: Vital Signs: Temperature 98.4 degrees, blood pressure 98/64, heart rate 126, respirations 26, O2 saturations 100% on 2 L nasal cannula. General: This is a chronically ill- appearing elderly female, lying in bed in no acute distress. Heart: S1, S2 normal. Tachycardic. Lungs: Equal air entry bilaterally. Abdomen: Positive bowel sounds. Soft, nontender, nondistended. Extremities: No edema, no cyanosis. Neurologic: The patient is alert and oriented x3. LABS: Reviewed. ASSESSMENT AND PLAN: 1. Acute hypoxemic respiratory failure. Continue with supplemental oxygen and pain control. 2. Metastatic small cell lung carcinoma. The patient is being followed by Dr. Howard and the patient is interested in additional therapy for her metastatic disease. Further management as per the oncologist. 3. Severe chronic pain. We will continue to adjust the patient's pain medications to achieve better pain control. 4. Hypomagnesemia. We will replace the patient's magnesium. 5. Constipation. The patient is on high dosages of narcotics. We will check an abdominal x-ray and start the patient on scheduled laxative therapy. 6. Hypothyroidism. Continue on Synthroid. 7. Paroxysmal atrial fibrillation. Continue on Cardizem CD. Further recommendations as per the supervisor molding. 8. Disposition. Palliative Care and Junior Art Director are following for assistance with goals of care and discharge planning. cc: Emilia Stock MD MTDD
[2019-02-06] MEDS: ATIVAN IV PRN ×3 (07:39→17:58)
[2019-02-06] MEDS: MUCOMYST 20% INH SCH ×2 (07:58→23:09)
[2019-02-06] MEDS ORDERED: MOVANTIK PO ONE (08:27)
[2019-02-06] MEDS ORDERED: MAGNESIUM SULFATE 2 GM/S.W.I. 2 GM/50 ML IVPB IV ONE (08:51)
[2019-02-06 09:10] LABS: AGAP 14; BUN 7 mg/dL (8-22); CALCIUM 8.2 mg/dL (8.8-10.2); CHLORIDE 91 mmol/L (98-107); COSMO 264; CREATININE 0.2 mg/dL (0.5-0.9); ESTIMATED GFR > 60; GLUCOSE 117 mg/dL (70-104); POTASSIUM 3.5 mmol/L (3.5-5.1); SODIUM 132 mmol/L (136-145); TCO2 27 mmol/L (25-35)
[2019-02-06] MEDS: LANOXIN PO SCH (09:13)
[2019-02-06] MEDS: CARDIZEM CD PO SCH (09:13)
[2019-02-06] MEDS: SENOKOT PO SCH ×2 (09:13→22:18)
[2019-02-06] MEDS: SYNTHROID PO SCH (09:15)
[2019-02-06] MEDS: NEUTRA-PHOS PO SCH ×4 (09:18→22:17)
[2019-02-06] MEDS: MIRALAX PO SCH ×2 (09:18→22:17)
[2019-02-06] MEDS: CALMOSEPTINE OINTMENT TOP SCH ×4 (09:19→22:15)
[2019-02-06] MEDS ORDERED: DURAGESIC 100 MICROGM/HR PATCH TD SCH (09:30)
[2019-02-06] MEDS: DILAUDID PCA VIAL IV PRN (09:47)
[2019-02-06] MEDS: CITRACAL + D PO SCH ×2 (10:13→22:16)
[2019-02-06 10:15] LABS: HEMATOCRIT 30.2 % (37.0-47.0); HEMOGLOBIN 9.4 g/dL (12.0-16.0); MCH 28.5 PG (27-31); MCHC 31.1 g/dL (33-37); MCV 91.5 FL (81-99); MPV 10.3 FL (7.4-10.4); RBC 3.3 XMIL (4.2-5.4); RDW 18.3 % (11.5-14.5); WBC 8.81 X1000 (4.8-10.8)
[2019-02-06 11:01] LABS: INR 1.75; PROTIME 21.7 Seconds (11.0-16.0)
--- NOTE | 2019-02-06 14:37 | HEMO/ONC CONSULTATION ---
DATE: 02/04/2019 ATTENDING PHYSICIAN: Dr. Farrar. REQUESTING PHYSICIAN: Dr. Farrar. We appreciate this consult. CHIEF COMPLAINT: Metastatic small cell lung cancer. HISTORY OF PRESENT ILLNESS: Ms. Turner is a 68-year-old, female well known to Dr. Howard with a history of metastatic small-cell lung cancer. She is status post cycle 1, day 1 of Opdivo and Yervoy on 01/21/2019. The patient presented to [facility] the day of admission secondary to generalized pain that began in the early hours of the morning. The patient's reports that the pain was uncontrolled with Dilaudid pills and a fentanyl patch. The patient had been transitioned to a morphine pump which was providing somewhat better pain control. However, the patient had an exacerbation of excruciating generalized pain. Upon presentation to [facility], the patient was noted to be in atrial fibrillation with RVR at a rate of 187. She was admitted for the same. We are consulted as she is well known to us. PAST MEDICAL HISTORY: 1. Metastatic small cell lung cancer. 2. Coronary artery disease. 3. COPD. 4. Hyperlipidemia. 5. Hypertension. 6. Hypothyroidism. 7. Peripheral vascular disease. 8. Myocardial infarction. PAST SURGICAL HISTORY: 1. Tonsillectomy. 2. Appendectomy. 3. Hysterectomy. 4. Cystocele repair. 5. Left leg stent. 6. Left femorotibial bypass and popliteal bypass. FAMILY HISTORY: Negative for any hematologic or oncologic disease. SOCIAL HISTORY: The patient is a former smoker. She does not currently use tobacco, alcohol, or illicit drugs. MEDICATIONS ON ADMISSION: As per medication reconciliation. MEDICATION ALLERGIES: The patient has no known drug allergies. REVIEW OF SYSTEMS: A 14 point review of systems was obtained and is negative except as mentioned in the HPI. PHYSICAL EXAMINATION: Ms. Sheets is a pleasant, 68-year-old, female who appears quite ill. Lying supine in bed, in no immediate distress. Vital Signs: Temperature 97.4 degrees, blood pressure 96/59, heart rate 105, respirations 17, O2 saturation 94% on 2 L nasal cannula O2. HEENT: Normocephalic, atraumatic. Mucous membranes pale and somewhat dry. Sclerae are anicteric. Extraocular movements intact. Neck: Supple. Lungs: Clear to auscultation bilaterally with decreased breath sounds in the bases. CV: S1 and S2 are heard. No murmurs, rubs, or gallops. Abdomen: Nondistended and nontender. Bowel sounds positive in all quadrants. No rebound or guarding noted. Extremities: With 1+ bilateral lower extremity edema. Dermatologic: No rashes, bruises, or lesions. Neurologic: The patient is awake, alert, and oriented x3, and has no focal deficits. LABORATORY DATA: Hemoglobin 9.8, hematocrit 30.8, white blood cell count 7.40, platelets 286,000. Sodium 131, potassium 3.0, chloride 94, CO2 is 25, BUN 2, creatinine 0.2, and glucose is 96, calcium is 8.0, phosphorus 2.6, magnesium 1.3. Urinalysis is negative for a UTI. IMAGING STUDIES: PET scan on 01/15/2019 revealed disease progression with left lung mass larger and new liver, left adrenal, and bony metastasis with left acetabulum and ilium destruction. ASSESSMENT AND PLAN: 1. Metastatic small cell lung cancer, status post cycle 1, day 1 of Opdivo and Yervoy on 01/21/2019. Next dose is due 02/11/2019. Additionally, Xgeva was due on February 08. Of note, the patient was given Aranesp on 01/28/2019. We will follow and provide treatment when scheduled. 2. New onset atrial fibrillation with rapid ventricular response, The patient is currently rate controlled with a heart rate of 105. She is on a Cardizem drip and cardiology is following. 3. Uncontrolled pain secondary to #1. The patient is currently on oxycodone 10 mg and fentanyl 50 mcg patches, as well as the pain pump. 4. We will follow along with you and make further recommendations pending outcomes. The above reflects the history, exam, assessment, and plan of Dr. Howard. Dictated by FABRIZIO Mora for Torey Howard MD cc: FABRIZIO Mora MD
--- NOTE | 2019-02-06 18:08 | PROGRESS NOTE ---
DATE: 02/06/2019 SUBJECTIVE: The patient continues to complain of intractable pain. 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 OBJECTIVE: Vital Signs: Temperature 98.5 degrees, blood pressure 98/57, heart rate 116, respirations 17, O2 saturation 95% on 3 L nasal cannula. General: This is a chronically ill- appearing elderly female, lying in bed in mild distress. HEENT: Head normocephalic, atraumatic. Heart: S1, S2 normal. Tachycardic. Lungs: Coarse breath sounds. Abdomen: Positive bowel sounds. Soft, nontender, nondistended. Extremities: No edema, no cyanosis. Neurologic: The patient is alert and oriented x4. LABORATORIES: Hemoglobin 9.4 hematocrit 30 platelets 286,000. INR 1.7. Sodium 132, potassium 3.5, chloride 91, CO2 of 27, BUN 7, creatinine 0.2, glucose 117, magnesium 1.2. ASSESSMENT AND PLAN: 1. Acute hypoxemic respiratory failure. Continue with supplemental oxygen. 2. Metastatic small cell lung carcinoma. Oncology is following. 3. Atrial fibrillation. Management as per the import export manager. 4. Severe chronic pain. We will increase the fentanyl patch dosage to 100 mcg. 5. Hypomagnesemia. We will replace the patient's magnesium. 6. Hypothyroidism. Continue on Synthroid. 7. Constipation. We will add Movantik and lactulose. Continue on MiraLAX. DISPOSITION: The patient is currently a DNR level 1. The patient states that she wants to continue receiving immunotherapy. cc: MD MURALI Vernon
[2019-02-06] MEDS: COUMADIN PO SCH (22:16)
[2019-02-06] MEDS: LACTULOSE PO SCH (22:17)
[2019-02-07] MEDS: DILAUDID PCA VIAL IV PRN ×2 (00:38→20:03)
[2019-02-07] MEDS: MAXIPIME 1 GM in NS 50 ML IV SCH (01:55)
[2019-02-07] MEDS: OXY IR PO SCH ×5 (02:56→20:29)
[2019-02-07] MEDS: DUONEB (A & A) INH SCH ×6 (03:33→23:35)
[2019-02-07 05:39] LABS: HEMATOCRIT 30.1 % (37.0-47.0); HEMOGLOBIN 9.4 g/dL (12.0-16.0); MCH 29.2 PG (27-31); MCHC 31.2 g/dL (33-37); MCV 93.5 FL (81-99); MPV 9.6 FL (7.4-10.4); RBC 3.22 XMIL (4.2-5.4); RDW 17.8 % (11.5-14.5); WBC 8.53 X1000 (4.8-10.8)
[2019-02-07 05:47] LABS: INR 1.77; PROTIME 21.9 Seconds (11.0-16.0)
[2019-02-07 05:57] LABS: AGAP 11; BUN 8 mg/dL (8-22); CHLORIDE 92 mmol/L (98-107); COSMO 266; CREATININE 0.2 mg/dL (0.5-0.9); DIGOXIN 0.7 ng/mL (0.9-2.0); ESTIMATED GFR > 60; GLUCOSE 92 mg/dL (70-104); MAGNESIUM 1.4 mg/dL (1.5-2.7); PHOSPHORUS 2.1 mg/dL (2.7-4.5); POTASSIUM 3.2 mmol/L (3.5-5.1); SODIUM 134 mmol/L (136-145); TCO2 31 mmol/L (25-35)
[2019-02-07] MEDS: CARDIZEM CD PO SCH ×2 (07:40→09:17)
[2019-02-07] MEDS: SYNTHROID PO SCH ×2 (07:40→09:18)
[2019-02-07] MEDS: LANOXIN PO SCH ×2 (07:43→09:19)
[2019-02-07] MEDS ORDERED: MAGNESIUM SULFATE 4 GM/S.W.I. 4 GM/100 ML IVPB IV ONE (08:58)
[2019-02-07] MEDS ORDERED: LASIX IV ONE (08:58)
[2019-02-07] MEDS ORDERED: POTASSIUM CHLORIDE 20% LIQUID PO ONE (08:59)
[2019-02-07] MEDS ORDERED: SODIUM PHOSPHATE 40 MMOL in NS 250 ML IV ONE (09:03)
[2019-02-07] MEDS ORDERED: TRANSDERM-SCOP TD SCH (09:15)
[2019-02-07] MEDS: SENOKOT PO SCH ×2 (09:18→20:30)
[2019-02-07] MEDS: MUCINEX PO SCH ×2 (09:19→20:29)
[2019-02-07] MEDS: MIRALAX PO SCH ×2 (09:19→20:29)
[2019-02-07] MEDS: CITRACAL + D PO SCH ×2 (09:21→20:29)
[2019-02-07] MEDS: LACTULOSE PO SCH ×2 (09:21→20:29)
[2019-02-07] MEDS: NEUTRA-PHOS PO SCH (10:40)
[2019-02-07] MEDS: MUCOMYST 20% INH SCH ×2 (11:20→20:00)
--- NOTE | 2019-02-07 11:39 | Diag Imaging Result Doc PS360 ---
EXAM: CHEST-1 VIEW HISTORY: pneumonia/lung cancer TECHNIQUE: Chest single view COMPARISON: 02/01/2019 FINDINGS: There continues to be complete opacification of the left hemithorax. Right lung is well expanded. Development of infiltrates or pulmonary edema in the right lung since the prior study. No change in the right jugular portacatheter. No pneumothorax. IMPRESSION: Interval development of infiltrates or pulmonary edema in the right lung. Electronically signed by Andrey Munoz 02/07/2019 11:37 AM
[2019-02-07] MEDS: CALMOSEPTINE OINTMENT TOP SCH ×4 (12:09→20:29)
--- NOTE | 2019-02-07 12:56 | PROGRESS NOTE ---
DATE: 02/07/2019 SUBJECTIVE: The patient is a lethargic and has coarse breath sounds. OBJECTIVE: Vital Signs: Temperature 98 degrees, blood pressure 92/65, heart rate 114, respirations 15, O2 saturation 97% on 4 L nasal cannula. Intake 65, output 1.7 L. General: This is a chronically ill-appearing, cachectic female, lying in bed in no acute distress. Heart: S1, S2 normal. Tachycardic. Lungs: Coarse breath sounds with crackles bilaterally. Abdomen: Hypoactive bowel sounds. Soft. Extremities: No edema, no cyanosis. Neurologic: The patient is lethargic. She will awaken and talk when her name is called. LABS: White blood cell count 8.5, hemoglobin 9.4, hematocrit 30, platelets 255. INR 1.7. Sodium 134, potassium 3.2, chloride 92, CO2 31. BUN 8, creatinine 0.2, glucose 92, phosphorus 2.1, magnesium 1.4. X-RAY: Chest x-ray reveals infiltrates and/or pulmonary edema in the right lung. ASSESSMENT AND PLAN: 1. Acute hypoxemic respiratory failure. Multifactorial. The patient has extensive metastatic lung cancer, pneumonia and pulmonary edema. Continue with supplemental oxygen, Lasix and antibiotics. 2. Pneumonia. We will change the patient to Merrem. Continue with bronchodilator therapy and supplemental oxygen. 3. Pulmonary edema. Will give the patient a dose of Lasix and monitor her response. 4. Metastatic neuroendocrine lung carcinoma. Management as per the oncologist. 5. Severe chronic pain. Continue on the fentanyl patch plus the FISHER LOBSTER for pain control. 6. Hypothyroidism. Continue on Synthroid. 7. Hypomagnesemia. We will replace the patient's magnesium. 8. Hypokalemia. Will replace the patient's potassium. 9. Opioid induced constipation. Continue on Movantik, MiraLAX and Senokot. 10. Atrial fibrillation. Continue on Cardizem and warfarin. We will continue to monitor the INR daily. 11. Disposition: The patient is currently a DNR level 1. The patient has a very poor prognosis. cc: Emilia Stock MD [facility]
[2019-02-07] MEDS: MERREM 500 MG in NS 50 ML IV SCH ×2 (13:42→20:29)
[2019-02-07] MEDS ORDERED: LR 1,000 ML IV SCH (19:45)
[2019-02-07] MEDS: COUMADIN PO SCH (20:29)
--- NOTE | 2019-02-07 21:26 | PULMONOLOGY PROGRESS NOTE ---
DATE: 02/07/2019 SUBJECTIVE: Patient's is at the bedside. He reports that she is having periods of air hunger, requiring sedation. OBJECTIVE: Vital Signs: Blood pressure 97/56, heart rate 115, respiratory rate 18, oxygen saturation 99%. The patient has audible rhonchi from the end of the bed. HEENT: Pupils are equal. Bitemporal wasting. Oropharynx appears clear. Neck: Supple. Chest: Reveals rhonchi throughout the right chest with decreased breath sounds on the left. Cardiac exam: Increased rate, regular rhythm. Abdomen: Soft. Extremities: Are without edema. LABORATORIES: Chest x-ray reveals complete opacification of the left hemithorax with new infiltrates on the right. IMPRESSION: A 68-year-old with: 1. Widely metastatic neuroendocrine cell carcinoma with progression of disease over the last 4 months. 2. Progressive decline in performance status. She is now an ECOG 4 status. 3. Hypoxemic respiratory failure. 4. Pneumonia on the right side. 5. [id number] atrial fibrillation with rapid ventricular response. RECOMMENDATIONS: 1. Continue current antibiotic regimen. 2. Continue comfort measures. I doubt she will survive this hospital stay. cc: Richard Herrera MD
[2019-02-08] MEDS: OXY IR PO SCH ×3 (02:37→14:32)
[2019-02-08] MEDS: DUONEB (A & A) INH SCH ×4 (03:34→15:59)
[2019-02-08] MEDS: MERREM 500 MG in NS 50 ML IV SCH ×2 (04:25→13:18)
[2019-02-08 06:00] LABS: HEMATOCRIT 30.5 % (37.0-47.0); HEMOGLOBIN 9.4 g/dL (12.0-16.0); MCH 29.2 PG (27-31); MCHC 30.8 g/dL (33-37); MCV 94.7 FL (81-99); MPV 9.4 FL (7.4-10.4); RBC 3.22 XMIL (4.2-5.4); RDW 17.5 % (11.5-14.5); WBC 9.24 X1000 (4.8-10.8)
[2019-02-08 06:09] LABS: INR 1.65; PROTIME 20.8 Seconds (11.0-16.0)
[2019-02-08 06:14] LABS: ESTIMATED GFR > 60
[2019-02-08 06:25] LABS: AGAP 8; BUN 9 mg/dL (8-22); CHLORIDE 88 mmol/L (98-107); COSMO 263; CREATININE 0.2 mg/dL (0.5-0.9); GLUCOSE 97 mg/dL (70-104); MAGNESIUM 1.5 mg/dL (1.5-2.7); PHOSPHORUS 1.8 mg/dL (2.7-4.5); POTASSIUM 3.4 mmol/L (3.5-5.1); SODIUM 132 mmol/L (136-145); TCO2 36 mmol/L (25-35)
--- NOTE | 2019-02-08 07:34 | Diag Imaging Result Doc PS360 ---
EXAM: CHEST-PORTABLE 02/08/2019 HISTORY: pneumonia/pulmonary edema TECHNIQUE: AP portable at 0602 COMMENT: The left hemithorax is completely opacified. There appears to be some volume loss as the hemidiaphragm is elevated on the left. Presumably there is at least a a component of atelectasis of the left lung in addition to pleural fluid. There is minimal interstitial opacity in the right lung which is definitely worse than on 02/01/2019 and may represent mild pulmonary edema. IMPRESSION: Complete atelectasis of the left lung presumably due to obstruction of the left mainstem bronchus. Mild interstitial pulmonary edema on the right. Electronically signed by Owen Newby 02/08/2019 7:32 AM
[2019-02-08] MEDS ORDERED: MAGNESIUM SULFATE 4 GM/S.W.I. 4 GM/100 ML IVPB IV ONE (07:36)
[2019-02-08] MEDS ORDERED: LASIX IV ONE (07:37)
[2019-02-08] MEDS ORDERED: POTASSIUM CHLORIDE 60 MEQ in NS 500 ML IV ONE (07:38)
[2019-02-08] MEDS: MUCOMYST 20% INH SCH (07:50)
[2019-02-08] MEDS: MIRALAX PO SCH (08:18)
[2019-02-08] MEDS: LANOXIN PO SCH (08:19)
[2019-02-08] MEDS: SENOKOT PO SCH (08:19)
[2019-02-08] MEDS: SYNTHROID PO SCH (08:19)
[2019-02-08] MEDS: LACTULOSE PO SCH (08:19)
[2019-02-08] MEDS: CARDIZEM CD PO SCH (08:19)
[2019-02-08] MEDS: MUCINEX PO SCH (08:21)
[2019-02-08] MEDS: CALMOSEPTINE OINTMENT TOP SCH ×2 (09:00→12:41)
[2019-02-08] MEDS: CITRACAL + D PO SCH (09:00)
[2019-02-08 11:59] VITALS: BP 114/65
[2019-02-08] MEDS ORDERED: ATROPINE 1 % OPHTH SOLN SL PRN (12:35)
--- NOTE | 2019-02-08 12:53 | PROGRESS NOTE ---
DATE: 02/08/2019 SUBJECTIVE: The patient is lethargic and sleepy. OBJECTIVE: Vital Signs: Temperature 98.6 degrees, blood pressure 114/65, heart rate 120, respirations 18, O2 saturation 95% on 4 L nasal cannula. General: This is a cachectic, chronically ill-appearing, lethargic female lying in bed. Heart: S1, S2 normal. Tachycardic. Lungs: Coarse breath sounds with crackles bilaterally. Abdomen: Hypoactive bowel sounds. Soft, nontender. Extremities: No edema, no cyanosis. Neurologic: The patient is lethargic but will awaken when his name is called. LABORATORY DATA: White blood cell count 9.2, hemoglobin 9.4, hematocrit 30, platelets 246,000. INR 1.6. Sodium 132, potassium 3.4, chloride 88, CO2 36, BUN 9, creatinine 0.2, calcium 8, magnesium 1.5. ASSESSMENT: 1. Acute hypoxemic respiratory failure. 2. Metastatic neuroendocrine lung carcinoma. 3. Pneumonia. 4. Pulmonary edema. 5. Hypothyroidism. 6. Severe chronic pain. 7. Atrial fibrillation. 8. Opioid induced constipation. PLAN: The patient has indicated to Angy with palliative care that she would like hospice to come in and evaluate her. We will continue with the current treatment regimen and await further recommendations from the hospice company. cc: MD MURALI Vernon
[2019-02-08] MEDS: DILAUDID PCA VIAL IV PRN (15:41)
--- NOTE | 2019-02-19 09:53 | DISCHARGE SUMMARY ---
ADMISSION DATE: 02/01/2019 DISCHARGE DATE: 02/08/2019 FINAL DISCHARGE DIAGNOSES: 1. Acute hypoxemic respiratory failure. 2. Metastatic neuroendocrine lung carcinoma. 3. Pneumonia. 4. Pulmonary edema. 5. Atrial fibrillation. 6. Hypothyroidism. 7. Severe chronic pain secondary to metastatic disease. 8. Opiate-induced constipation. HOSPITAL COURSE: Ms. Sheets is a 68-year-old female with a history of known widespread metastatic neuroendocrine lung carcinoma who was initially admitted to the hospital with the chief complaint of generalized pain. On admission, the patient was noted to be in a new onset of atrial fibrillation with RVR as well as heart failure. The patient was admitted to the hospitalist service and cardiology was consulted. The patient was initially started on a Cardizem drip. Also, the oncologist was consulted due to intractable pain secondary to her metastatic disease. 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 Over the course of the hospitalization, the patient's pain worsened and her clinical condition also worsened. Dr. Howard was also consulted since the patient's family was interested in further chemotherapy treatment. Palliative care was consulted and after further consultation with family, they opted to make the patient comfort measures. The patient was admitted to [facility] for comfort measures. cc: Emilia Stock MD
== END 2019-02-08 16:11 | disposition hospice, inpatient (51) | DRG 308 ==
LOC: SUPCPDRO → ED 10:34 → SUATTDRO 14:16 → 3S 14:16
PROVIDERS: ATTEND Internal Medicine
CPT/HCPCS: 51702; 71010; 71045; 71250; 74019; 74020; 80048; 80053; 80069; 80162; 81001; 82550; 83605; 83735; 83880; 84100; 84484; 85025; 85027; 85610; 86140; 87040; 93005; 93010; 93306; 94640; 94760; 94761; 96361; 96365; 96366; 96368; 96375; 96376; 97162; 99285; 99291; A9270; J0610; J0692; J1160; J1170; J1940; J1956; J2060; J2185; J2270; J2275; J2543; J3010; J3475; J3480; J7030; J7040; J7050; J7060; J7120; Q9974

== ENCOUNTER 2019-02-08 16:12 | Inpatient (IN) ==
[2019-02-08] MEDS ORDERED: OXY IR PO PRN (16:27)
[2019-02-08] MEDS ORDERED: TYLENOL PO PRN (16:29)
[2019-02-08] MEDS ORDERED: TYLENOL PR PRN (16:30)
[2019-02-08] MEDS ORDERED: ZOFRAN IV PRN (16:31)
[2019-02-08] MEDS ORDERED: CALMOSEPTINE OINTMENT TOP PRN (16:33)
[2019-02-08] MEDS ORDERED: EMLA CREAM TOP PRN (16:39)
[2019-02-08] MEDS: LR 1,000 ML IV SCH (16:55)
[2019-02-08] MEDS ORDERED: DILAUDID PCA VIAL IV PRN (17:15)
[2019-02-08] MEDS: ATROPINE 1 % OPHTH SOLN SL PRN (17:21)
[2019-02-08] MEDS: TRANSDERM-SCOP TD SCH (17:22)
[2019-02-08] MEDS: ROXANOL CONC. LIQUID PO PRN (17:31)
[2019-02-08] MEDS: ATIVAN IV PRN (17:31)
[2019-02-08] MEDS: LACTULOSE PO SCH (20:24)
[2019-02-08] MEDS: MUCINEX PO SCH (20:24)
[2019-02-08] MEDS: SENOKOT PO SCH (20:25)
[2019-02-08] MEDS: DUONEB (A & A) INH SCH (21:12)
[2019-02-08] MEDS: MUCOMYST 20% INH SCH (21:13)
[2019-02-09] MEDS: ATROPINE 1 % OPHTH SOLN SL PRN ×3 (00:40→09:07)
[2019-02-09] MEDS: ATIVAN IV PRN ×3 (01:04→13:19)
[2019-02-09] MEDS: ROXANOL CONC. LIQUID PO PRN ×3 (02:48→13:19)
[2019-02-09] MEDS: DUONEB (A & A) INH SCH ×2 (03:06→08:40)
[2019-02-09] MEDS: DILAUDID PCA VIAL IV PRN ×2 (05:39→16:33)
[2019-02-09] MEDS: SYNTHROID PO SCH (06:00)
[2019-02-09] MEDS: MUCOMYST 20% INH SCH (08:40)
[2019-02-09] MEDS: MUCINEX PO SCH ×2 (09:48→20:31)
[2019-02-09] MEDS: SENOKOT PO SCH ×2 (09:48→20:31)
[2019-02-09] MEDS: LACTULOSE PO SCH ×2 (09:48→20:31)
[2019-02-09] MEDS: CARDIZEM CD PO SCH (09:48)
[2019-02-09] MEDS: LR 1,000 ML IV SCH ×2 (16:43→20:34)
--- NOTE | 2019-02-09 18:16 | HISTORY AND PHYSICAL ---
HISTORY OF PRESENT ILLNESS: Ms Sheets is a 68-year-old female with a metastatic neuroendocrine lung carcinoma, atrial fibrillation, hypertension, hypothyroidism, atrial fibrillation and anemia who was initially admitted on February 01 with a chief complaint of generalized pain. On admission, the patient was noted to be in a new onset of atrial fibrillation as well as heart failure. The patient was admitted to the hospitalist service and Cardiology as well as Oncology were consulted. The patient had been undergoing treatment for her metastatic neuroendocrine lung cancer. The patient was noted to have intractable pain and was started on a Dilaudid CONTINUITY EDITOR pump. The patient was also started on Cardizem to achieve heart rate control. Despite therapy with the above- mentioned medications, the patient's clinical condition continued to worsen. Also the patient's pain became very difficult to control. After an extensive discussion with the patient and her , the patient opted to be placed under hospice care and to discontinue all interventions. At this time the patient is being admitted for inpatient hospice. PAST MEDICAL HISTORY: 1. Metastatic neuroendocrine lung cancer. 2. Hypothyroidism. 3. Peripheral vascular disease. 4. History of [place]. 5. COPD. 6. Hyperlipidemia. 7. Hypertension. PAST SURGICAL HISTORY: 1. Tonsillectomy. 2. Appendectomy. 3. Hysterectomy. 4. Left leg stent. 5. Left femoral tibial bypass. 6. Popliteal bypass. FAMILY HISTORY: Reviewed and noncontributory. SOCIAL HISTORY: The patient currently lives at home with her . The patient is an ex- smoker. ALLERGIES: No known drug allergies. IN HOSPITAL MEDICATIONS: reviewed. REVIEW OF SYSTEMS: A 12-point review of systems has been performed. PHYSICAL EXAMINATION: VITAL SIGNS: Temperature 98.2 degrees, blood pressure 101/57, heart rate 109, respirations 18, O2 saturation 95% on 4 L nasal cannula. GENERAL: This is a lethargic female lying in bed in no acute distress. HEAD: Normocephalic, atraumatic. HEART: S1, S2 normal. Tachycardic. LUNGS: Coarse breath sounds bilaterally with crackles. ABDOMEN: Hypoactive bowel sounds. Soft, nontender, nondistended. EXTREMITIES: No edema, no cyanosis. NEURO: The patient is lethargic but will awaken when her name is called. ASSESSMENT: 1. Acute hypoxemic respiratory failure. 2. Metastatic neuroendocrine lung carcinoma. 3. Pneumonia. 4. Pulmonary edema. 5. Hypothyroidism. 6. Severe chronic pain. 7. Atrial fibrillation. 8. Opioid-induced constipation. PLAN: The patient has been admitted to inpatient hospice. We will continue with comfort measures. The patient and her family have been updated on the plan of care. cc: Emilia Stock MD
[2019-02-10] MEDS: ATROPINE 1 % OPHTH SOLN SL PRN ×3 (04:57→23:26)
[2019-02-10] MEDS: SYNTHROID PO SCH (06:05)
[2019-02-10] MEDS: DILAUDID PCA VIAL IV PRN ×2 (07:21→20:48)
[2019-02-10] MEDS: ATIVAN IV PRN ×2 (09:40→13:25)
[2019-02-10] MEDS: ROXANOL CONC. LIQUID PO PRN ×2 (09:40→12:57)
[2019-02-10] MEDS: SENOKOT PO SCH ×2 (09:52→23:37)
[2019-02-10] MEDS: CARDIZEM CD PO SCH (09:52)
[2019-02-10] MEDS: LACTULOSE PO SCH ×2 (09:52→23:37)
[2019-02-10] MEDS: MUCINEX PO SCH ×2 (09:52→23:37)
--- NOTE | 2019-02-10 17:21 | PROGRESS NOTE ---
DATE: 02/10/2019 SUBJECTIVE: The patient is currently comfortable. No acute events noted overnight. OBJECTIVE: Vital signs: Temperature 98.3 degrees. General: This is a chronically ill-appearing female lying in bed in no acute distress. Heart: S1, S2 normal. Tachycardic. Lungs: Diminished breath sounds bilaterally. Abdomen: Positive. Hypoactive bowel sounds. Extremities: Trace pedal edema. ASSESSMENT: 1. Acute hypoxemic respiratory failure. 2. Metastatic neuroendocrine lung carcinoma. 3. Pneumonia. 4. Pulmonary edema. 5. Atrial fibrillation with rapid ventricular response. 6. Severe chronic pain. 7. Opioid induced constipation. PLAN: The patient is comfortable on the current pain regimen. We will continue to provide support to the family and keep the patient comfortable. Hospice is following. cc: Emilia Stock MD
[2019-02-10] MEDS: LR 1,000 ML IV SCH (20:49)
[2019-02-11] MEDS: SYNTHROID PO SCH (06:40)
[2019-02-11] MEDS: ROXANOL CONC. LIQUID PO PRN ×3 (07:57→18:00)
[2019-02-11] MEDS: ATIVAN IV PRN ×3 (07:58→18:00)
[2019-02-11] MEDS: DILAUDID PCA VIAL IV PRN (12:22)
--- NOTE | 2019-02-11 16:29 | PROGRESS NOTE ---
DATE: 02/11/2019 SUBJECTIVE: The patient is currently comatose but comfortable. Her family is present at the bedside. OBJECTIVE: Vital Signs: Temperature 98 degrees, blood pressure 86/55, heart rate 62, respirations 19, O2 saturation 91% on 6 L nasal cannula. General: This is a chronically ill- appearing elderly female, currently lying unresponsive in bed. Heart: S1, S2 normal, tachycardic. Lungs: Equal air entry bilaterally. No wheezing. No rales. Abdomen: Hypoactive bowel sounds. Extremities: No edema, no cyanosis. Neurologic: The patient is comatose. ASSESSMENT: 1. Acute hypoxemic respiratory failure. 2. Metastatic neuroendocrine lung carcinoma. 3. Pneumonia. 4. Pulmonary edema. 5. Atrial fibrillation with rapid ventricular response. 6. Severe chronic pain. 7. Opioid-induced constipation. PLAN: Continue with the current comfort measures as ordered. Hospice is following. cc: Emilia Stock MD
[2019-02-11] MEDS: ATROPINE 1 % OPHTH SOLN SL PRN ×2 (17:59→22:37)
[2019-02-11] MEDS: LR 1,000 ML IV SCH (18:03)
[2019-02-11] MEDS: TRANSDERM-SCOP TD SCH (18:04)
[2019-02-12] MEDS: ATROPINE 1 % OPHTH SOLN SL PRN (02:14)
[2019-02-12] MEDS: DILAUDID PCA VIAL IV PRN ×2 (02:17→18:14)
--- NOTE | 2019-02-12 15:45 | PROGRESS NOTE ---
DATE: 02/12/2019 SUBJECTIVE: The patient unfortunately is obtunded. OBJECTIVE: Vital signs: Blood pressure 112/66, heart rate 124, respiratory rate 18, temperature 97.5 degrees, 94% on 2 L. Cardiovascular: Regular rate and rhythm. Pulmonary: Bilateral breath sounds. Clear to auscultation. GI: Soft, nontender. LABORATORY: No labs. ASSESSMENT AND PLAN: The patient unfortunately is a patient with metastatic neuroendocrine lung cancer, steadily deteriorating. She is inpatient hospice. We are going to continue comfort measures. She is requiring a significant amount of pain medication, but she seems to be doing okay. cc: Mayo Roland MD
[2019-02-12] MEDS: LR 1,000 ML IV SCH (20:34)
[2019-02-13 04:23] VITALS: BP 118/58
[2019-02-13] MEDS: DILAUDID PCA VIAL IV PRN (09:12)
[2019-02-13] MEDS: ATROPINE 1 % OPHTH SOLN SL PRN (09:22)
[2019-02-13] MEDS: ROXANOL CONC. LIQUID PO PRN (11:33)
[2019-02-13] MEDS ORDERED: OFIRMEV 1000 MG/ISOTONIC SOLN 1,000 MG/100 ML BOTTLE IV PRN (15:09)
--- NOTE | 2019-02-13 15:26 | PROGRESS NOTE ---
DATE: 02/13/2019 SUBJECTIVE: To me she is very febrile and her heart rate has jumped up into the 140s. Reportedly, it has gone up into the 200s. OBJECTIVE: Cardiovascular: Regular rate and rhythm. Pulmonary: Bilateral breath sounds clear to auscultation. Gastrointestinal: Soft, nontender. LABORATORY DATA: No labs. ASSESSMENT AND PLAN: This is a metastatic lung cancer, small-cell lung cancer. She is getting neuro. She is getting inpatient hospice. I do think she is actively declining although the tachycardia now may be just related to the fever, but we will continue treatment and follow closely. DISPOSITION: Pending her clinical status. cc: Mayo Roland MD
[2019-02-13] MEDS: LR 1,000 ML IV SCH ×2 (15:44→17:32)
[2019-02-14] MEDS: DILAUDID PCA VIAL IV PRN (00:21)
== END 2019-02-14 03:52 | disposition expired | DRG 843 ==
LOC: 3S 16:12 → SUATTDRO 16:12 → 3N 02-12 10:11
PROVIDERS: ATTEND Internal Medicine
CPT/HCPCS: 94761; A9270; J0131; J1170; J2060; J7120